=== PATIENT | female | born 1940 | race Caucasian/White ===

== ENCOUNTER 2018-01-15 15:02 | Emergency (ER) | payer MEDICARE, OTHER ==
--- NOTE | 2018-01-15 18:22 | EDM.PDOC ---
ED HPI GENERAL MEDICAL PROBLEM - General Chief Complaint: General Stated Complaint: ILLNESS Time Seen by Provider: 01/15/18 18:26 Source of Information: Reports: Patient, Family History Limitations: Reports: No Limitations - History of Present Illness INITIAL COMMENTS - FREE TEXT/NARRATIVE: pt arrived with burning discomfort in her mouth. She has had the feeling that she had a yeast infection. She is having some swallowing difficulty and does think about yeast in her esopogus. . She is worried about a left toe nail that is loose and has a probable yeast infection. Onset: Gradual, Other ( This has been going on for many days. ) Duration: Day(s): Location: Reports: Neck, Lower Extremity, Left - Related Data Allergies Allergy/AdvReac Type Severity Reaction Status Date / Time codeine Allergy Swelling Verified 01/15/18 16:24 gluten Allergy Swelling Verified 01/15/18 16:24 naproxen [From Aleve] Allergy Hallucinati Verified 01/15/18 16:24 ons prednisone Allergy Swelling Verified 01/15/18 16:24 steroids Allergy Swelling Uncoded 01/15/18 16:24 Home Meds: Home Meds Albuterol [Proventil HFA] 2 puff INH Q4H PRN 01/15/18 [History] Cholecalciferol (Vitamin D3) [Vitamin D3] 1 cap PO DAILY 01/15/18 [History] Fish Oil/[place]-3 Fatty Acids [Fish Oil 1,000 MG] 1 cap PO TID 01/15/18 [History] Ibuprofen [Advil] 1 cap PO ASDIRECTED PRN 01/15/18 [History] Latanoprost [Xalatan 0.005% Ophth Soln] 1 drop EYEBOTH BEDTIME 01/15/18 [History ] Loratadine 1 cap PO DAILY 01/15/18 [History] Mineral Oil/Petrolatum,White [Artificial Tears Eye Ointment] 3.5 gm OP BEDTIME 01/15/18 [History] NIFEdipine [Procardia Xl] 1 tab PO TID 01/15/18 [History] Sod Chlor&Bicarb/Squeez Bottle [[place] Saline Nasal Rinse Kit] 1 dose HYACINTH TID 01/15 [History] Theophylline [Theophylline] 0.5 tab PO BID 01/15/18 [History] guaiFENesin [Guaifenesin] 400 mg PO BID 01/15/18 [History] Past Medical History HEENT History: Reports: Glaucoma, Impaired Vision Respiratory History: Reports: Asthma, Bronchitis, Recurrent Gastrointestinal History: Reports: Celiac Disease MANAGER SURGERY History: Reports: Endometriosis Neurological History: Reports: MS - Past Surgical History HEENT Surgical History: Reports: Naso-Sinus Surgery, Polypectomy, Other (See Below) Other HEENT Surgeries/Procedures: "straighten septum" GI Surgical History: Reports: Appendectomy Female Surgical History: Reports: Hysterectomy Musculoskeletal Surgical History: Reports: Other (See Below) Other Musculoskeletal Surgeries/Procedures:: knee surgery Social & Family History - Tobacco Use Smoking Status *Q: Current Status Unknown - Recreational Drug Use Recreational Drug Use: No ED ROS GENERAL - Review of Systems Review Of Systems: See Below Constitutional: Reports: No Symptoms HEENT: Reports: No Symptoms Respiratory: Reports: No Symptoms Cardiovascular: Reports: No Symptoms Endocrine: Reports: No Symptoms GI/Abdominal: Reports: No Symptoms, Other ( some difficulty swallowing. ) : Reports: No Symptoms Musculoskeletal: Reports: No Symptoms Skin: Reports: No Symptoms ED EXAM, GENERAL - Physical Exam Exam: See Below Free Text/Narrative:: pt arrived with burning in her throat and mouth. She thought she had thrush. She has stopped some of her breathing meds because of this. She has slight swallowing difficulty. She has a great toe nail that is loose and has a fungal infection. Exam Limited By: No Limitations General Appearance: Alert, Anxious, Mild Distress Ears: Normal TMs Nose: Normal Inspection Throat/Mouth: Normal Inspection Head: Atraumatic Neck: Normal Inspection Respiratory/Chest: No Respiratory Distress Cardiovascular: Other ( while she was being monitored she had a run of vtaCH) GI/Abdominal: Soft, Non-Tender (Female) Exam: Deferred Rectal (Female) Exam: Deferred Back Exam: Normal Inspection Extremities: Other ( GREAT TOE NAIL ON THE LEFT IS LOOSE AND THERE APPEARS TO BE A FUNGAL INFECTION) Neurological: Alert, Oriented, Normal Cognition Psychiatric: Anxious Course - Vital Signs Last Recorded V/S: Last Vital Signs Temp 36.6 C 01/15/18 16:11 Pulse 80 01/15/18 16:11 Resp 16 01/15/18 16:11 BP 127/60 01/15/18 16:11 Pulse Ox 93 L 01/15/18 16:11 - Orders/Labs/Meds Orders: Active Orders 24 hr Category Date Time Status EKG Documentation Completion [RC] ASDIRECTED Care 01/15/18 17:04 Active UA W/MICROSCOPIC [URIN] Urgent Lab 01/15/18 18:13 Ordered EKG 12 Lead [EK] Routine Ther 01/15/18 17:04 Ordered Labs: Laboratory Tests 01/15/18 01/15/18 Range/Units 17:11 17:11 WBC 7.0 (4.5-11.0) K/uL RBC 5.15 (3.30-5.50) M/uL Hgb 15.8 H (12.0-15.0) g/dL Hct 46.1 (36.0-48.0) % MCV 90 (80-98) fL MCH 31 (27-31) pg MCHC 34 (32-36) % Plt Count 271 (150-400) K/uL Neut % (Auto) 60 (36-66) % Lymph % (Auto) 23 L (24-44) % Love % (Auto) 14 H (2-6) % Eos % (Auto) 3 (2-4) % Baso % (Auto) 1 (0-1) % Sodium 141 (140-148) mmol/L Potassium 3.9 (3.6-5.2) mmol/L Chloride 104 (100-108) mmol/L Carbon Dioxide 28 (21-32) mmol/L Anion Gap 9.4 (5.0-14.0) mmol/L BUN 14 (7-18) mg/dL Creatinine 0.8 (0.6-1.0) mg/dL Est Cr Clr Drug Dosing 45.68 mL/min Estimated GFR (MDRD) > 60 (>60) Glucose 82 (74-106) mg/dL Calcium 9.7 (8.5-10.1) mg/dL Total Bilirubin 0.3 (0.2-1.0) mg/dL AST 22 (15-37) U/L ALT 28 (12-78) U/L Alkaline Phosphatase 85 (46-116) U/L Total Protein 6.8 (6.4-8.2) g/dL Albumin 3.7 (3.4-5.0) g/dL Globulin 3.1 (2.3-3.5) g/dL Albumin/Globulin Ratio 1.2 (1.2-2.2) - Re-Assessments/Exams Free Text/Narrative Re-Assessment/Exam: 01/15/18 18:35 PT HAD NORMAL LABS, sHE DID HAVE A RUN OF VTACH WHILE BEING MONITORED. Departure - Departure Time of Disposition: 18:18 Disposition: Home, Self-Care 01 Condition: Fair Clinical Impression: Irritation of oral cavity, Cardiac arrhythmia - Discharge Information Instructions: Palpitations, [id number] Referrals: Trevor Spencer MD [Primary Care Provider] - Forms: ED Department Discharge Care Plan Goals: treat left toe nail with lotrimin solution apply to the open area tid, holter monitor 48 hour-- run of ventricular tach documented. If persistent swallowing difficulty pt wouLd need to be scoped to see if there is a yeast infection - My Orders Last 24 Hours: My Active Orders 01/15/18 17:04 EKG Documentation Completion [RC] ASDIRECTED EKG 12 Lead [EK] Routine 01/15/18 18:13 UA W/MICROSCOPIC [URIN] Urgent - Assessment/Plan Last 24 Hours: My Active Orders 01/15/18 17:04 EKG Documentation Completion [RC] ASDIRECTED EKG 12 Lead [EK] Routine 01/15/18 18:13 UA W/MICROSCOPIC [URIN] Urgent
== END 2018-01-15 18:39 | disposition home or self-care (01) ==
LOC: JP.ED 15:02
DX: K13.29 Other disturbances of oral epithelium, including tongue (principal); I49.9 Cardiac arrhythmia, unspecified; J45.909 Unspecified asthma, uncomplicated; Z88.5 Allergy status to narcotic agent; Z91.018 Allergy to other foods; Z88.8 Allergy status to other drugs, medicaments and biological substances; Z79.899 Other long term (current) drug therapy
CPT/HCPCS: 36415; 80053; 85025; 93005; 99284-25

== ENCOUNTER 2019-05-11 02:17 | Inpatient (IN) | payer MEDICARE, OTHER ==
[2019-05-11] MEDS ORDERED: methylPREDNISolone Sodium Succinate 125 MG/2 ML SDV IVPUSH ONE (02:22)
[2019-05-11] MEDS ORDERED: Sodium Chloride 0.9% 10 ML Syringe FLUSH PRN (02:22)
--- NOTE | 2019-05-11 02:32 | EDM.PDOC ---
ED HPI GENERAL MEDICAL PROBLEM - General Chief Complaint: Respiratory Problem Stated Complaint: [facility] Time Seen by Provider: 05/11/19 02:20 Source of Information: Reports: EMS, Old Records History Limitations: Reports: No Limitations - History of Present Illness INITIAL COMMENTS - FREE TEXT/NARRATIVE: 78 yo female with known COPD presents via EMS with increasing SOB over the past 3 days or so. No fever. She is not on home oxygen. EMS responded and found her oxygen sats at about 90% on their arrival. She was noted to be quite wheezy so EMS initiated CPAP and a Duoneb tx. Has MS also. Lives with her . Stopped her Brio inhaler recently for presumed side effects, has gotten worse since. Onset: Gradual Onset Date: 05/08/19 Duration: Day(s): (3), Getting Worse Location: Reports: Chest Quality: Reports: Other (tightness) Severity: Mild Improves with: Reports: Rest Worsens with: Reports: Movement Context: Reports: Other (hx of chronic lung dz/tobacco abuse) Associated Symptoms: Reports: Shortness of Breath. 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 Treatments, Oxygen Generalized Pain Score (Numeric/FACES): 9 - Related Data Allergies Allergy/AdvReac Type Severity Reaction Status Date / Time acetaminophen [From Tylenol] Allergy Severe Rash Verified 05/11/19 02:40 gluten Allergy Severe Swelling Verified 05/11/19 02:40 latex Allergy Severe Swelling Verified 05/11/19 02:40 Penicillins Allergy Severe Swelling Verified 05/11/19 02:40 codeine Allergy Swelling Verified 05/11/19 02:40 naproxen [From Aleve] Allergy Hallucinati Verified 05/11/19 02:40 ons prednisone Allergy Swelling Verified 05/11/19 02:40 steroids Allergy Swelling Uncoded 05/11/19 02:40 Home Meds: Home Meds Albuterol [Proventil HFA] 2 puff INH Q4H PRN 01/15/18 [History] Latanoprost [Xalatan 0.005% Ophth Soln] 1 drop EYEBOTH BEDTIME 01/15/18 [History ] Mineral Oil/Petrolatum,White [Artificial Tears Eye Ointment] 3.5 gm OP BEDTIME 01/15/18 [History] NIFEdipine [Procardia Xl] 1 tab PO DAILY 01/15/18 [History] Sod Chlor&Bicarb/Squeez Bottle [[place] Saline Nasal Rinse Kit] 1 dose HYACINTH TID PRN 01/15/18 [History] Metoprolol Succinate [Toprol Xl] 25 mg PO DAILY 07/25/18 [History] Lactobacillus Acidophilus [Acidophilus Lactobacillus] 1 each PO BID #60 capsule 07/26/18 [Rx] Famotidine [Pepcid AC] 10 mg PO DAILY 10/29/18 [History] Montelukast [Singulair] 10 mg PO DAILY 10/29/18 [History] Fluticasone/Vilanterol [Breo Ellipta 100-25 MCG Inhalation Kit] 1 each IH DAILY 05/11/19 [History] Past Medical History HEENT History: Reports: Glaucoma, Impaired Vision Cardiovascular History: Reports: Arrhythmia, Other (See Below) Other Cardiovascular History: mitral valve prolapse Respiratory History: Reports: Asthma, Bronchitis, Recurrent Gastrointestinal History: Reports: Celiac Disease, GERD RECRUITMENT AND OUTREACH ASSISTANT History: Reports: Endometriosis Neurological History: Reports: MS Dermatologic History: Reports: Urticaria - Past Surgical History HEENT Surgical History: Reports: Naso-Sinus Surgery, Polypectomy, Other (See Below) Other HEENT Surgeries/Procedures: "straighten septum" GI Surgical History: Reports: Appendectomy Female Surgical History: Reports: Hysterectomy Musculoskeletal Surgical History: Reports: Other (See Below) Other Musculoskeletal Surgeries/Procedures:: knee surgery Social & Family History - Caffeine Use Caffeine Use: Reports: Coffee - Living Situation & Occupation Living situation: Reports: Occupation: Retired (lives with ) ED ROS GENERAL - Review of Systems Review Of Systems: See Below Constitutional: Reports: No Symptoms HEENT: Reports: No Symptoms Respiratory: Reports: Shortness of Breath, Wheezing Cardiovascular: Reports: No Symptoms Endocrine: Reports: No Symptoms GI/Abdominal: Reports: No Symptoms : Reports: No Symptoms Musculoskeletal: Reports: No Symptoms Skin: Reports: No Symptoms Neurological: Reports: No Symptoms Psychiatric: Reports: No Symptoms ED EXAM, GENERAL - Physical Exam Exam: See Below Exam Limited By: No Limitations General Appearance: Alert, WD/WN, No Apparent Distress Eye Exam: Right Eye: Normal Fundi, Bilateral Eye: Normal Inspection Ears: Normal External Exam, Normal Canal, Hearing Grossly Normal Ear Exam: Bilateral Ear: Auricle Normal, Canal Normal Nose: Normal Inspection, No Blood Throat/Mouth: Normal Inspection, Normal Lips, Normal Oropharynx, Normal Voice, No Airway Compromise Head: Atraumatic, Normocephalic Neck: Normal Inspection Respiratory/Chest: Wheezing, Accessory Muscle Use. No: Lungs Clear, Normal Breath Sounds, Rhonchi Cardiovascular: Regular Rate, Rhythm, No Edema GI/Abdominal: Soft Extremities: Normal Inspection, Normal Range of Motion, Non-Tender, No Pedal Edema Neurological: Alert, Oriented, CN II-XII Intact, Normal Cognition, No Motor/ Sensory Deficits Psychiatric: Normal Affect, Normal Mood Skin Exam: Warm, Dry, Intact, Normal Color, No Rash Course - Vital Signs Text/Narrative:: Dr. Cherrie arevalo @ [id number] Last Recorded V/S: Last Vital Signs Temp 36.4 C 05/11/19 02:37 Pulse 103 H 05/11/19 02:37 Resp 20 05/11/19 02:37 BP 142/79 H 05/11/19 02:37 Pulse Ox 96 05/11/19 02:37 - Orders/Labs/Meds Orders: Active Orders 24 hr Category Date Time Status Chest 1V Frontal [CR] Stat Exams 05/11/19 02:22 Ordered BASIC METABOLIC PANEL,BMP [CHEM] Stat Lab 05/11/19 02:22 Ordered CRP [C-REACTIVE PROTEIN] [CHEM] Stat Lab 05/11/19 02:23 Ordered TROPONIN I [CHEM] Stat Lab 05/11/19 02:22 Ordered Sodium Chloride 0.9% [Saline Flush] Med 05/11/19 02:22 Active 10 ml FLUSH ASDIRECTED PRN Saline Lock Insert [OM.PC] Routine Oth 05/11/19 02:22 Ordered Medication Orders Sodium Chloride (Saline Flush) 10 ml FLUSH ASDIRECTED PRN PRN Reason: Keep Vein Open Labs: Laboratory Tests 05/11/19 05/11/19 Range/Units 02:35 02:35 WBC 9.4 (4.5-11.0) K/uL RBC 5.18 (3.30-5.50) M/uL Hgb 16.1 H (12.0-15.0) g/dL Hct 46.6 (36.0-48.0) % MCV 90 (80-98) fL MCH 31 (27-31) pg MCHC 35 (32-36) % Plt Count 236 (150-400) K/uL Puncture Site L brachial ABG pH 7.357 (7.350-7.450) ABG pCO2 55.2 H (35.0-42.0) mmHg ABG pO2 200.0 H (75.0-100.0) mmHg ABG HCO3 30.2 H (22.0-26.0) mmol/L ABG Total CO2 25.9 H (21.0-25.0) mmol/L ABG O2 Saturation 99.2 H (95.0-98.0) % ABG O2 Content 22.7 (15.0-23.0) %vol ABG Base Excess 3.5 mm/L ABG Hemoglobin 16.5 H (12.0-16.0) g/dL ABG Oxyhemoglobin 96.6 % ABG Carboxyhemoglobin 2.1 H (0.0-1.6) % ABG Methemoglobin 0.5 % O2 Delivery Device Cpap Oxygen Flow Rate 6 L Meds: Medications Generic Name Dose Route Start Last Admin Trade Name Freq PRN Reason Stop Dose Admin Sodium Chloride 10 ml 05/11/19 02:22 Saline Flush FLUSH ASDIRECTED PRN Keep Vein Open Discontinued Medications Generic Name Dose Route Start Last Admin Trade Name Freq PRN Reason Stop Dose Admin Methylprednisolone Sodium Succinate 125 mg 05/11/19 02:22 Solu-Medrol IVPUSH 05/11/19 02:23 ONETIME ONE - Radiology Interpretation Free Text/Narrative:: CXR-hyperaeration only. Departure - Departure Time of Disposition: 03:15 Disposition: Refer to Observation Condition: Fair Clinical Impression: COPD exacerbation - Discharge Information *PRESCRIPTION DRUG MONITORING PROGRAM REVIEWED*: No *COPY OF PRESCRIPTION DRUG MONITORING REPORT IN PATIENT MARTHA: No Referrals: Trevor Spencer MD [Primary Care Provider] - Forms: ED Department Discharge - My Orders Last 24 Hours: My Active Orders 05/11/19 02:22 Chest 1V Frontal [CR] Stat BASIC METABOLIC PANEL,BMP [CHEM] Stat TROPONIN I [CHEM] Stat Sodium Chloride 0.9% [Saline Flush] 10 ml FLUSH ASDIRECTED PRN Saline Lock Insert [OM.PC] Routine 05/11/19 02:23 CRP [C-REACTIVE PROTEIN] [CHEM] Stat - Assessment/Plan Last 24 Hours: My Active Orders 05/11/19 02:22 Chest 1V Frontal [CR] Stat BASIC METABOLIC PANEL,BMP [CHEM] Stat TROPONIN I [CHEM] Stat Sodium Chloride 0.9% [Saline Flush] 10 ml FLUSH ASDIRECTED PRN Saline Lock Insert [OM.PC] Routine 05/11/19 02:23 CRP [C-REACTIVE PROTEIN] [CHEM] Stat
--- NOTE | 2019-05-11 03:19 | CRLCR ---
Indication: Shortness of breath Technique: Chest 1 view Comparison: N October 29, 2018 one Findings/Impression: Cardiovascular and mediastinum: Heart size and vasculature are normal in caliber and appearance. Mediastinum is within normal limits. Lungs and pleural space: Lungs are clear. No sign of infiltrate or mass. No sign of pleural effusion. No pneumothorax. Bones and soft tissues: No significant findings. Dictated by Brie Norris MD @ May 11 2019 3:16AM Signed by Dr. Brie Norris @ May 11 2019 3:18AM
[2019-05-11] MEDS ORDERED: SODIUM CHLORIDE NAS PRN (04:28)
[2019-05-11] MEDS ORDERED: SODIUM BICARBONATE NAS PRN (04:28)
[2019-05-11] MEDS ORDERED: [UNRECOGNIZED DRUG - OTHER] NAS PRN (04:28)
[2019-05-11] MEDS: methylPREDNISolone Sodium Succinate 125 MG/2 ML SDV IVPUSH SCH ×3 (05:35→16:17)
[2019-05-11] MEDS: Albuterol/Ipratropium 3.0-0.5 MG/3 ML Neb Soln NEB SCH ×4 (05:35→22:50)
--- NOTE | 2019-05-11 06:16 | HP ---
IDENTIFYING DATA: Alicia Spain is a 78-year-old female from [place]. CHIEF COMPLAINT: Worsening chronic respiratory disease. HISTORY OF PRESENT ILLNESS: Adult female who has a history of known chronic obstructive pulmonary disease with previous tobacco use, now abstaining, presented to the emergency room with increased shortness of breath and air hunger. She reports she uses albuterol products in metered-dose inhaler or nebulizer form on a p.r.n. basis. She has been trialed on multitude of alternative maintenance medications including recently used Breo Ellipta, Advair Diskus and montelukast, all of which cause medication-related side effects and therefore discontinued. She does not have home oxygen. She requires no nocturnal supportive therapy in the form of CPAP. She refuses pneumococcal and influenza vaccines noting previous reaction with injections. She has had no fevers, chills, or purulent sputum production. She has had chest tightness of 3 days' duration, increasing dyspnea with minimal exertion and clear mucoid sputum production with Breo Ellipta having been discontinued approximately 1-1/2 week ago. PAST MEDICAL HISTORY: History of chronic obstructive pulmonary disease. She reports gluten sensitivity with restricted dietary intake, a greater than 40-year history of multiple sclerosis, Raynaud's phenomena, hyperlipidemia, and mitral valve prolapse. HABITS: Nonsmoker of 3 years' duration by patient's report. Abstains from use of caffeinated beverages and alcohol. CURRENT MEDICATIONS: Tizanidine 4 mg t.i.d. p.r.n., albuterol metered-dose inhaler or nebulizer solution q.4 hours p.r.n., acetaminophen 325 mg q.6 hours p.r.n. pain, Lactobacillus 1 tablet b.i.d., metoprolol succinate 25 mg daily for underlying mitral valve prolapse, Xalatan 0.005% one drop to both eyes at bedtime, famotidine 10 mg daily, nasal saline rinse used as necessary, EpiPen p.r.n. anaphylaxis. Note recent discontinuation of Breo Ellipta, nifedipine and montelukast. SOCIAL HISTORY: Retired. Restricted by chronic respiratory disease and accompanying weakness and pain from multiple sclerosis. She resides with in their independent dwelling. She performs limited amounts of light household work. She is able to ambulate independently though uses a walker to provide stabilization. Does assist with some shopping. She no longer drives. service station attendant provides assistance with bathing. No other nursing care in-home is required. FAMILY HISTORY: Sister with a history of obstructive pulmonary disease and anxiety disorder. No familial history of acute respiratory infections. REVIEW OF SYSTEMS: NEUROLOGIC: Reports multiple sclerosis with diffuse generalized hypersensitivity, pain and weakness. Does have accompanying glaucomatous eye disease. No history of stroke or stroke-like function. CARDIAC: Mitral valve prolapse. No history of ischemic heart disease, chest pain, palpitations, syncope, diabetes, hypertension, or congestive heart failure. Intermittent mild dependent edema is managed with elevation of the extremities RESPIRATORY: Chronic obstructive pulmonary disease with previous tobacco use, now abstaining, otherwise as above. GI: Reports gluten sensitivity and abdominal upset with gluten exposure. No history of hepatitis, jaundice, or gallbladder disease. Bowel movements are regular without melena or hematochezia. : Rises once nightly to void. Occasional scant incontinence with cough or strain. No history of chronic renal disease. MUSCULOSKELETAL: Some discomfort in the lower extremities attributed to multiple sclerosis. Has had previous arthroscopic knee surgery. PHYSICAL EXAMINATION: GENERAL: Appearance of that of a thin, mildly anxious elderly female. VITAL SIGNS: Initial vitals, temperature 36.4 degrees centigrade, blood pressure 142/79, respiratory rate 20, pulse 103 with borderline sinus tachycardia, O2 sats are 96% with supplemental oxygen at 4 L/minute. HEENT: Hearing is intact. Canals and TMs are normal. Sclerae anicteric. Extraocular eye movements are symmetrical. No oropharyngeal lesions. Mucosa is moist. NECK: Brisk carotid pulses. No bruits, adenopathy, or thyromegaly. LUNGS: Resonant to percussion. No retractions noted. Diminished breath sounds throughout. No wheezes, rales, or rhonchi heard. HEART: Regular. Borderline tachycardic. No murmurs or gallops noted. ABDOMEN: Thin, soft, and nontender. No organomegaly. Active sounds. No CVA pain. AND RECTAL EXAM: Omitted. EXTREMITIES: Warm, pink and dry with brisk capillary refill. Palpable pulses. No pitting edema. No phlebitic changes or varicosities. No open skin lesions. Noncyanotic. IMAGING STUDIES: AP chest x-ray on admission shows emphysematous changes with hyperexpanded lung pryor, flattening of the diaphragm. Cardiac silhouette is unremarkable. No acute infiltrates. LABORATORY DATA: Labs on admission, sodium 142, potassium 4.4, BUN 14, creatinine 0.7, glucose 113 with calcium of 10. Troponin less than 0.017. CRP 0.17. WBC within normal range at 7.4, hemoglobin 16.1, platelet count 236,000. IMPRESSIONS: 1. Chronic obstructive pulmonary disease in a formerly smoking female with presentation of acute exacerbation. 2. Reported history of multiple sclerosis. 3. History of gluten sensitivity with dietary restrictions. 4. Mitral valve prolapse. 5. Glaucoma. 6. Reports multiple drug allergies or intolerances. Listed allergies include fish oil, fluticasone, gluten, amitriptyline, codeine, flu vaccines, latex, naproxen, penicillin and questionably prednisone though steroid therapies have previously been used. PLAN: The patient will be admitted to observation status. We will provide supplemental oxygen as needed, DuoNebs q.i.d. and every 3 hours p.r.n. dyspnea as well as IV Solu-Medrol with injectable corticosteroids previously used with good results. The patient does note she typically receives IM triamcinolone for chronic environmental allergies. We will maintain full code status. Allow dietary intake with patient making gluten-free selections as desired. Allow light activity as tolerated. Call for assistance if weak or unsteady. We will maintain on inhaled bronchodilator therapies. Discussed the option of initiating maintenance inhaled therapy such as Spiriva or combination beta-agonist and steroid product, though the patient is hesitant to commit to therapies. We will therefore continue with limited therapies including IV steroid burst and inhaled bronchodilators. Consider also resumption of montelukast. The patient noting she abstains from use of antihistamines for reasons of glaucomatous eye disease Anticipate hospital stay of less than 72 hours with subsequent follow up with primary caregiver in the outpatient clinic. Og Grier MD /[id number]
[2019-05-11] MEDS ORDERED: NIFEDIPINE PO SCH (09:00)
[2019-05-11] MEDS ORDERED: Non-Formulary Medication 1 Each (Montelukast [Singulair] 10 MG) PO SCH (09:00)
[2019-05-11] MEDS ORDERED: Lactobacillus Rhamnosus GG (Probiotic) Cap PO SCH (09:00)
[2019-05-11] MEDS ORDERED: Famotidine 20 MG Tab PO SCH ×3 (09:00→16:30)
[2019-05-11] MEDS: Metoprolol Succinate 25 MG Tab.ER**POM PO SCH (09:03)
[2019-05-11] MEDS ORDERED: tiZANidine 2 MG Tab PO PRN (13:33)
[2019-05-11] MEDS: TIZANIDINE 4 MG PO PRN (13:51)
[2019-05-11] MEDS: FAMOTIDINE 20 MG PO SCH (16:16)
[2019-05-11] MEDS: LACTOBACILLUS RHAMNOSUS GG PO SCH ×2 (18:03→20:14)
[2019-05-11] MEDS ORDERED: Lanolin/Mineral Oil/Petrolatum Ophth Oint 3.5 GM Tube EYEBOTH SCH (21:00)
[2019-05-11] MEDS ORDERED: Latanoprost 0.005% Ophth Soln 2.5 ML Bottle EYEBOTH SCH (21:00)
[2019-05-11] MEDS: LATANOPROST 0.005% EYEBOTH SCH (21:00)
[2019-05-11] MEDS: Lanolin/Mineral Oil/Petrolatum Ophth Oint 3.5 GM Tube EYEBOTH SCH (21:23)
[2019-05-11] MEDS: Acetaminophen 325 MG Tab PO PRN (21:24)
[2019-05-12] MEDS: TIZANIDINE 4 MG PO PRN (00:20)
[2019-05-12] MEDS: methylPREDNISolone Sodium Succinate 125 MG/2 ML SDV IVPUSH SCH ×2 (00:26→09:31)
[2019-05-12] MEDS: Acetaminophen 325 MG Tab PO PRN ×2 (03:21→10:08)
[2019-05-12] MEDS: Albuterol/Ipratropium 3.0-0.5 MG/3 ML Neb Soln NEB SCH ×4 (04:26→22:34)
[2019-05-12] MEDS: LACTOBACILLUS RHAMNOSUS GG PO SCH ×4 (05:57→18:36)
[2019-05-12] MEDS: Metoprolol Succinate 25 MG Tab.ER**POM PO SCH ×2 (07:58→08:51)
--- NOTE | 2019-05-12 09:28 | PCM.PN ---
- General Info Date of Service: 05/12/19 Subjective Update: There were no acute events throughout the day yesterday or overnight. Oxygenation has been steadily improving and she's now down to 1 L of supplemental oxygen. She feels less short of breath today. She has not had any fevers. She is a little weak but thinks her strength is better today. Appetite is acceptable. No wheezing today. Functional Status: Reports: Pain Controlled, Tolerating Diet - Review of Systems General: Reports: Weakness Pulmonary: Reports: Shortness of Breath - Patient Data Vitals - Most Recent: Last Vital Signs Temp 35.5 C 05/12/19 08:00 Pulse 78 05/12/19 08:00 Resp 20 05/12/19 08:00 BP 117/44 L 05/12/19 08:00 Pulse Ox 95 05/12/19 08:00 Weight - Most Recent: 46.221 kg I&O - Last 24 Hours: Intake & Output 05/11/19 05/12/19 05/12/19 22:59 06:59 14:59 Intake Total 240 Output Total 200 400 160 Balance -200 -400 80 Med Orders - Current: Current Medications Acetaminophen (Tylenol) 650 mg PO Q4H PRN PRN Reason: Pain Last Admin: 05/12/19 03:21 Dose: 325 mg Albuterol/Ipratropium (Duoneb 3.0-0.5 Mg/3 Ml) 3 ml NEB Q6H [facility] Last Admin: 05/12/19 04:26 Dose: 3 ml Artificial Tears (Artificial Tears Ointment) 0 gm EYEBOTH BEDTIME [facility] Last Admin: 05/11/19 21:23 Dose: Not Given Famotidine (Pepcid) 20 mg PO DAILY@1630 [facility] Last Admin: 05/11/19 16:16 Dose: 20 mg Lactobacillus Rhamnosus (Culturelle) 1 cap PO Q12H [facility] Last Admin: 05/12/19 07:39 Dose: Not Given Latanoprost (Xalatan 0.005% [facility]) 0 ml EYEBOTH BEDTIME [facility] Last Admin: 05/11/19 21:00 Dose: 1 drop Methylprednisolone (Medrol) 4 mg PO BIDAC [facility] Methylprednisolone Sodium Succinate (Solu-Medrol) 62.5 mg IVPUSH Q8H [facility] Stop: 05/13/19 08:00 Last Admin: 05/12/19 00:26 Dose: 62.5 mg Metoprolol Succinate (Toprol Xl) 25 mg PO DAILY [facility] Last Admin: 05/12/19 08:51 Dose: Not Given Sod Chlor&Bicarb/Squeez Bottle ([place] Saline)Pom 0 dose HYACINTH TID PRN PRN Reason: Allergies Sodium Chloride (Saline Flush) 10 ml FLUSH ASDIRECTED PRN PRN Reason: Keep Vein Open Last Admin: 05/11/19 04:05 Dose: 10 ml Tizanidine HCl (Zanaflex) 2 mg PO TID PRN PRN Reason: Muscle Spasm Last Admin: 05/12/19 00:20 Dose: 2 mg Discontinued Medications Artificial Tears (Artificial Tears Ointment) 0 gm EYEBOTH BEDTIME [facility] Famotidine (Pepcid) 10 mg PO DAILY [facility] Last Admin: 05/11/19 10:20 Dose: Not Given Famotidine (Pepcid) 10 mg PO DAILY [facility] Famotidine (Pepcid) 10 mg PO DAILY@1630 [facility] Lactobacillus Rhamnosus (Culturelle) 1 cap PO BID [facility] Last Admin: 05/11/19 09:02 Dose: Not Given Lactobacillus Rhamnosus (Culturelle) 1 cap PO BID [facility] Last Admin: 05/12/19 05:57 Dose: 1 cap Latanoprost (Xalatan 0.005% Ophth Soln) 0 ml EYEBOTH BEDTIME [facility] Methylprednisolone Sodium Succinate (Solu-Medrol) 125 mg IVPUSH ONETIME ONE Stop: 05/11/19 02:23 Last Admin: 05/11/19 05:07 Dose: Not Given Methylprednisolone Sodium Succinate (Solu-Medrol) 125 mg IVPUSH Q6H [facility] Stop: 05/13/19 08:00 Last Admin: 05/11/19 10:40 Dose: 125 mg Non-Formulary Medication (Montelukast [Singulair]) 10 mg PO DAILY [facility] Non-Formulary Medication (Nifedipine [Procardia Xl]) 1 tab PO DAILY [facility] Tizanidine HCl (Zanaflex) 2 mg PO TID PRN PRN Reason: Muscle Spasm - Exam Quality Assessment: Supplemental Oxygen General: Alert, Oriented, Cooperative, No Acute Distress Neck: Supple Lungs: Clear to Auscultation, Normal Respiratory Effort. No: Wheezing Cardiovascular: Regular Rate, Regular Rhythm GI/Abdominal Exam: Soft, No Distention Extremities: No Pedal Edema Psy/Mental Status: Alert, Normal Affect - Problem List Review Problem List Initiated/Reviewed/Updated: Yes - My Orders Last 24 Hours: My Active Orders 05/11/19 13:41 tiZANidine [Zanaflex] 2 mg PO TID PRN 05/11/19 16:13 Patient Status [ADT] Routine 05/11/19 17:00 methylPREDNISolone Sod Succ [Solu-MEDROL] 62.5 mg IVPUSH Q8H 05/12/19 09:27 Antiembolic Devices [RC] .Routine Peripheral IV Discontinue [OM.PC] Routine SCD [Sequential Compression Device] [OM.PC] Routine 05/12/19 09:30 methylPREDNISolone [Medrol] 4 mg PO BIDAC - Plan Plan:: ASSESSMENT AND PLAN - COPD with acute exacerbation - likely environmental trigger with normal white count, no fevers and normal CRP. Improving with steroid therapy. -Transition to oral methylprednisolone 4 mg twice daily with plan to treat through Monday -Nebulizers -Supplement oxygen as needed Acute respiratory failure with hypoxia and hypercapnia - steadily improving with therapy as discussed above. Still requiring supplemental oxygen. Multiple sclerosis - symptoms are stable compared to baseline with no exacerbation at this time. -Continue home medications Celiac disease - patient is strictly gluten-free. Maintenance issues - - DVT prophylaxis - mechanical - GI prophylaxis - H2 joe - Nutrition - gluten-free - Currie catheter - not indicated Admission justification - Initially admitted to observation status for transition to inpatient status with acute respiratory failure with both hypoxia and hypercapnia. Disposition - I would anticipate discharge to home after the hospital stay Primary care physician - Dr. Johanna Cheung M.D.
[2019-05-12] MEDS: FAMOTIDINE 20 MG PO SCH (15:41)
[2019-05-12] MEDS: Lanolin/Mineral Oil/Petrolatum Ophth Oint 3.5 GM Tube EYEBOTH SCH (20:51)
[2019-05-12] MEDS: LATANOPROST 0.005% EYEBOTH SCH (22:52)
[2019-05-13] MEDS: Acetaminophen 325 MG Tab PO PRN (00:27)
[2019-05-13] MEDS: TIZANIDINE 4 MG PO PRN ×2 (03:32→03:34)
[2019-05-13] MEDS: Albuterol/Ipratropium 3.0-0.5 MG/3 ML Neb Soln NEB SCH ×2 (03:54→10:14)
[2019-05-13] MEDS: LACTOBACILLUS RHAMNOSUS GG PO SCH (06:21)
[2019-05-13] MEDS: Metoprolol Succinate 25 MG Tab.ER**POM PO SCH (08:02)
--- NOTE | 2019-05-13 10:36 | PCM.DCSUM1 ---
Discharge Summary - Hospital Course Brief History: Ms. Spain is a 78-year-old woman who was admitted through the emergency department with increased shortness of breath, hypoxia, and hypercapnia, secondary to COPD exacerbation. - Discharge Data Discharge Date: 05/13/19 Discharge Disposition: Home, Self-Care 01 Condition: Stable - Discharge Diagnosis/Problem(s) (1) Acute on chronic respiratory failure with hypoxia and hypercapnia SNOMED Code(s): 10020101532811 ICD Code: J96.21 - ACUTE AND CHRONIC RESPIRATORY FAILURE WITH HYPOXIA; J96.22 - ACUTE AND CHRONIC RESPIRATORY FAILURE WITH HYPERCAPNIA Status: Acute Current Visit: Yes (2) COPD exacerbation SNOMED Code(s): 793380477 ICD Code: J44.1 - CHRONIC OBSTRUCTIVE PULMONARY DISEASE W (ACUTE) EXACERBATION Status: Acute Current Visit: Yes (3) Multiple sclerosis SNOMED Code(s): 58209226 ICD Code: G35 - MULTIPLE SCLEROSIS Status: Chronic Current Visit: No - Patient Summary/Data Hospital Course: Ms. Spain is a 78-year-old woman who was admitted through the emergency department with increased shortness of breath, hypoxia, and hypercapnia, secondary to COPD exacerbation. She has a past history of smoking and does have underlying COPD. For a few days prior to admission developed increased shortness of breath and presented to the emergency department for further evaluation. White blood cell count was normal and chest x-ray showed no obvious infiltrates. Exacerbation was felt to be environmental in nature with no evidence of underlying infection. Arterial blood gases were obtained showing evidence of hypoxia and hypercapnia. She has a known underlying history of multiple sclerosis complicating her respiratory status. She was treated with IV methylprednisolone and prior to discharge was converted to oral methylprednisolone. She required supplemental oxygen throughout hospital stay. Prior to discharge she was assessed for ongoing use of supplemental oxygen at home. Oxygen saturation on room air at rest was 86% prior to discharge. Home oxygen therapy will be arranged for her and she will remain on oral methylprednisolone for an additional 3 days. Activity will be as tolerated and she will resume her usual diet. Follow-up appointment will be scheduled with her primary care provider within one week. - Patient Instructions Diet: Usual Diet as Tolerated Activity: As Tolerated Other/Special Instructions: Please schedule follow-up appointment with primary care provider within one week. - Discharge Plan *PRESCRIPTION DRUG MONITORING PROGRAM REVIEWED*: No *COPY OF PRESCRIPTION DRUG MONITORING REPORT IN PATIENT MARTHA: No Prescriptions/Med Rec: methylPREDNISolone [Medrol] 4 mg PO BIDAC #5 tablet Home Medications: Home Meds Albuterol [Proventil HFA] 2 puff INH Q4H PRN 01/15/18 [History] Latanoprost [Xalatan 0.005% Ophth Soln] 1 drop EYEBOTH BEDTIME 01/15/18 [History ] Mineral Oil/Petrolatum,White [Artificial Tears Eye Ointment] 3.5 gm OP BEDTIME 01/15/18 [History] NIFEdipine [Procardia Xl] 1 tab PO DAILY 01/15/18 [History] Sod Chlor&Bicarb/Squeez Bottle [[place] Saline Nasal Rinse Kit] 1 dose HYACINTH TID PRN 01/15/18 [History] Metoprolol Succinate [Toprol Xl] 25 mg PO DAILY 07/25/18 [History] Lactobacillus Acidophilus [Acidophilus Lactobacillus] 1 each PO BID #60 capsule 07/26/18 [Rx] Famotidine [Pepcid AC] 10 mg PO DAILY 10/29/18 [History] Montelukast [Singulair] 10 mg PO DAILY 10/29/18 [History] Fluticasone/Vilanterol [Breo Ellipta 100-25 MCG Inhalation Kit] 1 each IH DAILY 05/11/19 [History] methylPREDNISolone [Medrol] 4 mg PO BIDAC #5 tablet 05/13/19 [Rx] Patient Handouts: Chronic Obstructive Pulmonary Disease, [id number] Referrals: Trevor Spencer MD [Primary Care Provider] - - Discharge Summary/Plan Comment DC Time >30 min.: No - Patient Data Vitals - Most Recent: Last Vital Signs Temp 96 F 05/13/19 08:04 Pulse 87 05/13/19 08:04 Resp 12 05/13/19 08:04 BP 145/61 H 05/13/19 08:04 Pulse Ox 86 L 05/13/19 09:57 Weight - Most Recent: 101 lb I&O - Last 24 hours: Intake & Output 05/12/19 05/13/19 05/13/19 22:59 06:59 14:59 Intake Total 240 Output Total 500 Balance -260 Med Orders - Current: Current Medications Acetaminophen (Tylenol) 650 mg PO Q4H PRN PRN Reason: Pain Last Admin: 05/13/19 00:27 Dose: 325 mg Albuterol/Ipratropium (Duoneb 3.0-0.5 Mg/3 Ml) 3 ml NEB Q6H [facility] Last Admin: 05/13/19 10:14 Dose: Not Given Artificial Tears (Artificial Tears Ointment) 0 gm EYEBOTH BEDTIME [facility] Last Admin: 05/12/19 20:51 Dose: Not Given Famotidine (Pepcid) 20 mg PO DAILY@1630 [facility] Last Admin: 05/12/19 15:41 Dose: 20 mg Lactobacillus Rhamnosus (Culturelle) 1 cap PO Q12H [facility] Last Admin: 05/13/19 06:21 Dose: 1 cap Latanoprost (Xalatan 0.005% Ophth Soln) 0 ml EYEBOTH BEDTIME [facility] Last Admin: 05/12/19 22:52 Dose: 1 drop Methylprednisolone (Medrol) 4 mg PO BIDAC [facility] Last Admin: 05/13/19 08:00 Dose: 4 mg Metoprolol Succinate (Toprol Xl) 25 mg PO DAILY [facility] Last Admin: 05/13/19 08:02 Dose: 25 mg Sod Chlor&Bicarb/Squeez Bottle ([place] Saline)Pom 0 dose HYACINTH TID PRN PRN Reason: Allergies Sodium Chloride (Saline Flush) 10 ml FLUSH ASDIRECTED PRN PRN Reason: Keep Vein Open Last Admin: 05/11/19 04:05 Dose: 10 ml Tizanidine HCl (Zanaflex) 2 mg PO TID PRN PRN Reason: Muscle Spasm Last Admin: 05/13/19 03:34 Dose: 2 mg Discontinued Medications Artificial Tears (Artificial Tears Ointment) 0 gm EYEBOTH BEDTIME [facility] Famotidine (Pepcid) 10 mg PO DAILY [facility] Last Admin: 05/11/19 10:20 Dose: Not Given Famotidine (Pepcid) 10 mg PO DAILY [facility] Famotidine (Pepcid) 10 mg PO DAILY@1630 [facility] Lactobacillus Rhamnosus (Culturelle) 1 cap PO BID [facility] Last Admin: 05/11/19 09:02 Dose: Not Given Lactobacillus Rhamnosus (Culturelle) 1 cap PO BID [facility] Last Admin: 05/12/19 05:57 Dose: 1 cap Latanoprost (Xalatan 0.005% Ophth Soln) 0 ml EYEBOTH BEDTIME [facility] Methylprednisolone Sodium Succinate (Solu-Medrol) 125 mg IVPUSH ONETIME ONE Stop: 05/11/19 02:23 Last Admin: 05/11/19 05:07 Dose: Not Given Methylprednisolone Sodium Succinate (Solu-Medrol) 125 mg IVPUSH Q6H [facility] Stop: 05/13/19 08:00 Last Admin: 05/11/19 10:40 Dose: 125 mg Methylprednisolone Sodium Succinate (Solu-Medrol) 62.5 mg IVPUSH Q8H [facility] Stop: 05/13/19 08:00 Last Admin: 05/12/19 09:31 Dose: Not Given Non-Formulary Medication (Montelukast [Singulair]) 10 mg PO DAILY [facility] Non-Formulary Medication (Nifedipine [Procardia Xl]) 1 tab PO DAILY [facility] Tizanidine HCl (Zanaflex) 2 mg PO TID PRN PRN Reason: Muscle Spasm - Exam Quality Assessment: Reports: Supplemental Oxygen, DVT Prophylaxis General: Reports: Alert, Oriented, Cooperative, No Acute Distress Lungs: Reports: Decreased Breath Sounds. Denies: Crackles, Rales, Rhonchi, Wheezing Cardiovascular: Reports: Regular Rate, Regular Rhythm, No Murmurs GI/Abdominal Exam: Soft, Non-Tender, No Organomegaly, No Distention
== END 2019-05-13 13:28 | disposition home or self-care (01) | DRG 190 ==
LOC: JP.ED 02:17 → JP.ICU 05:09 → INTOOBSV 05:09 → OBSVTOIN 16:13
PROVIDERS: ADMIT Family Medicine; ATTEND Hospitalist
DX: J44.1 Chronic obstructive pulmonary disease with (acute) exacerbation (principal); J96.21 Acute and chronic respiratory failure with hypoxia; J96.22 Acute and chronic respiratory failure with hypercapnia; G35 Multiple sclerosis; H54.7 Unspecified visual loss; H40.9 Unspecified glaucoma; K90.0 Celiac disease; K21.9 Gastro-esophageal reflux disease without esophagitis; Z90.710 Acquired absence of both cervix and uterus; Z87.891 Personal history of nicotine dependence; Z88.6 Allergy status to analgesic agent; Z91.040 Latex allergy status; Z88.0 Allergy status to penicillin; Z88.8 Allergy status to other drugs, medicaments and biological substances; R06.2 Wheezing; I49.9 Cardiac arrhythmia, unspecified; R06.02 Shortness of breath; Z91.018 Allergy to other foods; Z79.899 Other long term (current) drug therapy; I73.00 Raynaud's syndrome without gangrene; E78.5 Hyperlipidemia, unspecified; I34.1 Nonrheumatic mitral (valve) prolapse
CPT/HCPCS: 36415; 36600; 71045; 80048; 82803; 84484; 85027; 86140; 94640 ×2; 99285; A9270 ×2; J2930 ×2; J7620-GY

== ENCOUNTER 2019-10-22 05:41 | Inpatient (IN) | payer MEDICARE, OTHER ==
[2019-10-22] MEDS ORDERED: Sodium Chloride 0.9% 10 ML Syringe FLUSH PRN (05:47)
[2019-10-22] MEDS ORDERED: Carvedilol 25 MG Tab PO ONE (05:53)
[2019-10-22] MEDS ORDERED: Aspirin 81 MG Tab.Chew PO ONE (05:53)
--- NOTE | 2019-10-22 06:00 | EDM.PDOC ---
<Elie Kennedy G - Last Filed: 10/22/19 06:41> ED HPI GENERAL MEDICAL PROBLEM - General Chief Complaint: Cardiovascular Problem Stated Complaint: MED[facility] Time Seen by Provider: 10/22/19 05:45 Source of Information: Reports: Patient, EMS, Old Records History Limitations: Reports: No Limitations - History of Present Illness INITIAL COMMENTS - FREE TEXT/NARRATIVE: 79 yo female here via EMS with SOB that she awoke with at home tonight. Is on oxygen chronically at 1 liter/min/nc. Has chronic lung dz and MS. Is on low dose metoprolol succinate that she last took yesterday morning. Says Dr. Spencer was in the process of switching her to Coreg. Denies recent fever or chest pain. Breathing is worse if she lays flat. Has no hx of afib. Has an ECHO pending. EMS gave ASA en route. Onset: Today, Sudden Onset Date: 10/22/19 Onset Time: 05:05 Duration: Minutes:, Constant Location: Reports: Chest Quality: Reports: Other (denies pain) Severity: Moderate (SOB) Improves with: Reports: Other (oxygen and sitting upright) Worsens with: Reports: Other (lying flat, lack of oxygen) Context: Reports: Other (see HPI, has COPD and MS) Associated Symptoms: Reports: Shortness of Breath. Denies: Confusion, Cough, Diaphoresis, Fever/Chills, Nausea/Vomiting, Syncope Treatments CATEGORY SPECIALIST: Reports: Aspirin Generalized Pain Score (Numeric/FACES): 2 - Related Data Allergies Allergy/AdvReac Type Severity Reaction Status Date / Time acetaminophen [From Tylenol] Allergy Severe Rash Verified 05/11/19 06:12 gluten Allergy Severe Swelling Verified 05/11/19 06:12 latex Allergy Severe Swelling Verified 05/11/19 06:12 Penicillins Allergy Severe Swelling Verified 05/11/19 06:12 codeine Allergy Swelling Verified 05/11/19 06:12 naproxen [From Aleve] Allergy Hallucinati Verified 05/11/19 06:12 ons prednisone Allergy Swelling Verified 05/11/19 06:12 steroids Allergy Swelling Uncoded 05/11/19 06:12 Home Meds: Home Meds Albuterol [Proventil HFA] 2 puff INH Q4H PRN 01/15/18 [History] Latanoprost [Xalatan 0.005% Ophth Soln] 1 drop EYEBOTH BEDTIME 01/15/18 [History ] Mineral Oil/Petrolatum,White [Artificial Tears Eye Ointment] 3.5 gm OP BEDTIME 01/15/18 [History] Sod Chlor&Bicarb/Squeez Bottle [[place] Saline Nasal Rinse Kit] 1 dose HYACINTH TID PRN 01/15/18 [History] Metoprolol Succinate [Toprol Xl] 25 mg PO DAILY 07/25/18 [History] Lactobacillus Acidophilus [Acidophilus Lactobacillus] 1 each PO BID #60 capsule 07/26/18 [Rx] Famotidine [Pepcid AC] 10 mg PO DAILY 10/29/18 [History] Acetaminophen 325 mg PO DAILY 10/22/19 [History] Azithromycin [Zithromax] 250 mg PO DAILY 10/22/19 [History] Cefdinir [Omnicef 250 MG/5 ML Susp] 250 mg PO ASDIRECTED 10/22/19 [History] EPINEPHrine [Epinephrine] 0.3 mg IM ASDIRECTED 10/22/19 [History] tiZANidine [Zanaflex] 4 mg PO TID 10/22/19 [History] Past Medical History HEENT History: Reports: Glaucoma, Impaired Vision Cardiovascular History: Reports: Other (See Below) Other Cardiovascular History: mitral valve prolapse Respiratory History: Reports: Asthma, Bronchitis, Recurrent Gastrointestinal History: Reports: Celiac Disease, GERD INTERMEDIATE MANAGER History: Reports: Endometriosis Neurological History: Reports: MS Dermatologic History: Reports: Urticaria - Infectious Disease History Infectious Disease History: Reports: Chicken Pox, Measles, Mumps, Shingles - Past Surgical History HEENT Surgical History: Reports: Naso-Sinus Surgery, Polypectomy, Other (See Below) Other HEENT Surgeries/Procedures: "straighten septum" GI Surgical History: Reports: Appendectomy Female Surgical History: Reports: Hysterectomy Musculoskeletal Surgical History: Reports: Other (See Below) Other Musculoskeletal Surgeries/Procedures:: knee surgery left Social & Family History - Family History Family Medical History: Noncontributory - Caffeine Use Caffeine Use: Reports: None - Living Situation & Occupation Living situation: Reports: Occupation: Retired (lives with ) ED ROS GENERAL - Review of Systems Review Of Systems: See Below Constitutional: Reports: Weakness (chronic from her MS) HEENT: Reports: No Symptoms Respiratory: Reports: Shortness of Breath. Denies: Wheezing, Cough, Sputum, Hemoptysis Cardiovascular: Reports: No Symptoms GI/Abdominal: Reports: No Symptoms, Other (Has celiac dz) : Reports: No Symptoms Musculoskeletal: Reports: No Symptoms Skin: Reports: No Symptoms Neurological: Reports: No Symptoms Psychiatric: Reports: No Symptoms ED EXAM, GENERAL - Physical Exam Exam: See Below Exam Limited By: No Limitations General Appearance: Alert, WD/WN, Mild Distress Eye Exam: Bilateral Eye: Normal Inspection Ears: Normal External Exam, Normal Canal, Hearing Grossly Normal Ear Exam: Bilateral Ear: Auricle Normal, Canal Normal Nose: Normal Inspection, No Blood Throat/Mouth: Normal Inspection, Normal Lips, Normal Oropharynx, Normal Voice, No Airway Compromise Head: Atraumatic, Normocephalic Neck: Normal Inspection Respiratory/Chest: No Respiratory Distress, Lungs Clear, Decreased Breath Sounds , Other (mild tachypnea) Cardiovascular: Regular Rate, Rhythm, No Edema, Tachycardia GI/Abdominal: Normal Bowel Sounds, Soft, Non-Tender, No Distention Back Exam: Normal Inspection. No: CVA Tenderness (R), CVA Tenderness (L) Extremities: Normal Inspection, Normal Range of Motion, Non-Tender, No Pedal Edema Neurological: Alert, Oriented, CN II-XII Intact, Normal Cognition, No Motor/ Sensory Deficits Psychiatric: Normal Affect, Normal Mood Skin Exam: Warm, Dry, Intact, Normal Color, No Rash EKG INTERPRETATION EKG Date: 10/22/19 Time: 05:20 Rhythm: NSR Rate (Beats/Min): 114 [place]: RAD-Right [place] Deviation P-Wave: Present QRS: Normal ST-T: Normal QT: Normal Comparison: Change From Previous EKG (significant rate increase from 79 to 114 per min.) Course - Vital Signs Last Recorded V/S: Last Vital Signs Temp 98.9 F 10/22/19 05:45 Pulse 67 10/22/19 08:27 Resp 26 H 10/22/19 08:27 BP 127/59 L 10/22/19 08:27 Pulse Ox 93 L 10/22/19 08:27 - Orders/Labs/Meds Orders: Active Orders 24 hr Category Date Time Status Cardiac Monitoring [RC] .As Directed Care 10/22/19 05:47 Active RT Aerosol Therapy [RC] ASDIRECTED Care 10/22/19 08:49 Active Iopamidol [Isovue-370 (76%)] Med 10/22/19 07:30 Active 100 ml IV . DIRECTED Sodium Chloride 0.9% [Normal Saline] 100 ml Med 10/22/19 07:30 Active IV ASDIRECTED Sodium Chloride 0.9% [Saline Flush] Med 10/22/19 05:47 Active 10 ml FLUSH ASDIRECTED PRN Sodium Chloride 0.9% [Saline Flush] Med 10/22/19 07:30 Active 10 ml FLUSH ONETIME Saline Lock Insert [OM.PC] Routine Oth 10/22/19 05:47 Ordered Medication Orders Sodium Chloride (Normal Saline) 100 mls @ 4 mls/sec IV ASDIRECTED CHICO Last Admin: 10/22/19 07:20 Dose: 4 mls/sec Iopamidol (Isovue-370 (76%)) 100 ml IV . DIRECTED CHICO Last Admin: 10/22/19 07:20 Dose: 100 ml Sodium Chloride (Saline Flush) 10 ml FLUSH ASDIRECTED PRN PRN Reason: Keep Vein Open Last Admin: 10/22/19 07:59 Dose: 10 ml Sodium Chloride (Saline Flush) 10 ml FLUSH ONETIME CHICO Last Admin: 10/22/19 07:20 Dose: 10 ml Labs: Laboratory Tests 10/22/19 10/22/19 10/22/19 Range/Units 06:01 06:01 06:01 WBC 11.6 H (4.5-11.0) K/uL RBC 5.00 (3.30-5.50) M/uL Hgb 14.4 (12.0-15.0) g/dL Hct 45.3 (36.0-48.0) % MCV 91 (80-98) fL MCH 29 (27-31) pg MCHC 32 (32-36) % Plt Count 297 (150-400) K/uL D-Dimer, Quantitative 730 H (0.0-400.0) ng/mL Sodium 140 (140-148) mmol/L Potassium 4.4 (3.6-5.2) mmol/L Chloride 101 (100-108) mmol/L Carbon Dioxide 30 (21-32) mmol/L Anion Gap 8.8 (5.0-14.0) mmol/L BUN 12 (7-18) mg/dL Creatinine 0.7 (0.6-1.0) mg/dL Est Cr Clr Drug Dosing 57.35 mL/min Estimated GFR (MDRD) > 60 (>60) Glucose 118 H (74-106) mg/dL Calcium 9.5 (8.5-10.1) mg/dL Troponin I < 0.017 (0.000-0.056) ng/mL TSH, Ultra Sensitive (0.358-3.740) uIU/mL Urine Color (YELLOW) Urine Appearance (CLEAR) Urine pH (5.0-8.0) Ur Specific [place] (1.008-1.030) Urine Protein (NEGATIVE) mg/dL Urine Glucose (UA) (NEGATIVE) mg/dL Urine Ketones (NEGATIVE) mg/dL Urine Occult Blood (NEGATIVE) Urine Nitrite (NEGATIVE) Urine Bilirubin (NEGATIVE) Urine Urobilinogen (0.2-1.0) EU/dL Ur Leukocyte Esterase (NEGATIVE) Urine RBC (0-5) Urine WBC (0-5) Ur Epithelial Cells Amorphous Sediment Urine Bacteria Urine Mucus 10/22/19 10/22/19 Range/Units 06:24 08:45 WBC (4.5-11.0) K/uL RBC (3.30-5.50) M/uL Hgb (12.0-15.0) g/dL Hct (36.0-48.0) % MCV (80-98) fL MCH (27-31) pg MCHC (32-36) % Plt Count (150-400) K/uL D-Dimer, Quantitative (0.0-400.0) ng/mL Sodium (140-148) mmol/L Potassium (3.6-5.2) mmol/L Chloride (100-108) mmol/L Carbon Dioxide (21-32) mmol/L Anion Gap (5.0-14.0) mmol/L BUN (7-18) mg/dL Creatinine (0.6-1.0) mg/dL Est Cr Clr Drug Dosing mL/min Estimated GFR (MDRD) (>60) Glucose (74-106) mg/dL Calcium (8.5-10.1) mg/dL Troponin I (0.000-0.056) ng/mL TSH, Ultra Sensitive 1.006 (0.358-3.740) uIU/mL Urine Color Yellow (YELLOW) Urine Appearance Clear (CLEAR) Urine pH 7.5 (5.0-8.0) Ur Specific [place] 1.015 (1.008-1.030) Urine Protein Negative (NEGATIVE) mg/dL Urine Glucose (UA) Negative (NEGATIVE) mg/dL Urine Ketones Negative (NEGATIVE) mg/dL Urine Occult Blood Trace-intact H (NEGATIVE) Urine Nitrite Negative (NEGATIVE) Urine Bilirubin Negative (NEGATIVE) Urine Urobilinogen 0.2 (0.2-1.0) EU/dL Ur Leukocyte Esterase Negative (NEGATIVE) Urine RBC 0-5 (0-5) Urine WBC Not seen (0-5) Ur Epithelial Cells Not seen Amorphous Sediment Rare Urine Bacteria Not seen Urine Mucus Not seen Meds: Medications Generic Name Dose Route Start Last Admin Trade Name Freq PRN Reason Stop Dose Admin Sodium Chloride 100 mls @ 4 mls/sec 10/22/19 07:30 10/22/19 07:20 Normal Saline IV 4 mls/sec ASDIRECTED CHICO Administration Iopamidol 100 ml 10/22/19 07:30 10/22/19 07:20 Isovue-370 (76%) IV 100 ml . DIRECTED CHICO Administration Sodium Chloride 10 ml 10/22/19 05:47 10/22/19 07:59 Saline Flush FLUSH 10 ml ASDIRECTED PRN Administration Keep Vein Open Sodium Chloride 10 ml 10/22/19 07:30 10/22/19 07:20 Saline Flush FLUSH 10 ml ONETIME CHICO Administration Discontinued Medications Generic Name Dose Route Start Last Admin Trade Name Freq PRN Reason Stop Dose Admin Albuterol 2.5 mg 10/22/19 08:48 10/22/19 09:21 Proventil Neb Soln NEB 10/22/19 08:49 2.5 mg ONETIME ONE Administration Aspirin 324 mg 10/22/19 05:53 10/22/19 06:03 Aspirin PO 10/22/19 05:54 Not Given ONETIME ONE Carvedilol 25 mg 10/22/19 05:53 10/22/19 06:02 Coreg PO 10/22/19 05:54 25 mg ONETIME ONE Administration Hydromorphone HCl 0.25 mg 10/22/19 06:40 Dilaudid IVPUSH 10/22/19 06:41 ONETIME ONE Methylprednisolone Sodium Succinate 125 mg 10/22/19 06:09 10/22/19 06:17 Solu-Medrol IVPUSH 10/22/19 06:10 125 mg ONETIME ONE Administration - Radiology Interpretation Free Text/Narrative:: CXR- IMPRESSION: 1. 1 cm left perihilar nodular opacity could represent infiltrate versus possible nodule. Recommend follow up imaging to evaluate for persistence. Dictated by Manda Blair MD @ Oct 22 2019 6:39AM CTA chest- CT Results Date: 10/22/19 Departure - Departure Disposition: Admitted As Inpatient 68 Clinical Impression: COPD exacerbation Referrals: PCP,None [Primary Care Provider] - Forms: ED Department Discharge - My Orders Last 24 Hours: My Active Orders 10/22/19 07:30 Iopamidol [Isovue-370 (76%)] 100 ml IV . DIRECTED Sodium Chloride 0.9% [Normal Saline] 100 ml IV ASDIRECTED Sodium Chloride 0.9% [Saline Flush] 10 ml FLUSH ONETIME 10/22/19 08:49 RT Aerosol Therapy [RC] ASDIRECTED - Assessment/Plan Last 24 Hours: My Active Orders 10/22/19 07:30 Iopamidol [Isovue-370 (76%)] 100 ml IV . DIRECTED Sodium Chloride 0.9% [Normal Saline] 100 ml IV ASDIRECTED Sodium Chloride 0.9% [Saline Flush] 10 ml FLUSH ONETIME 10/22/19 08:49 RT Aerosol Therapy [RC] ASDIRECTED <Franc Chavez - Last Filed: 10/22/19 09:39> Departure - Departure Time of Disposition: 09:39 Condition: Poor - Assessment/Plan Plan: Assessment Acuity = acute Site and laterality = COPD exacerbation Etiology = unknown Manifestations = dyspnea Location of injury = Home Lab values = CBC, BMP urinalysis unremarkable d-dimer elevated at 730 CT scan of the chest shows no pulmonary emboli does have significant emphysema however no pulmonary findings there is a new irregular nodule superior right lobe of uncertain significance also an 8 mm right nodule in the thyroid which is not seen in prior studies both of which need follow-up Plan Call discussed case with hospitalist service station console operator at [phone] he kindly agreed to come to the emergency department and evaluate for admission This note was dictated using [employer] voice recognition software please call with any questions on syntax or grammar.
[2019-10-22] MEDS ORDERED: methylPREDNISolone Sodium Succinate 125 MG/2 ML SDV IVPUSH ONE (06:09)
[2019-10-22] MEDS ORDERED: HYDROmorphone 0.5 MG/0.5 ML Syringe IVPUSH ONE (06:40)
--- NOTE | 2019-10-22 06:42 | CRLCR ---
Shortness of breath. Comparison chest x-ray 05/11/2019. Findings: : Patient is rotated. Normal cardiac mediastinal silhouette. Left perihilar 1 cm nodular opacity. Right lung is clear. No effusion. No pneumothorax. IMPRESSION: 1. 1 cm left perihilar nodular opacity could represent infiltrate versus possible nodule. Recommend follow up imaging to evaluate for persistence. Dictated by Manda Blair MD @ Oct 22 2019 6:39AM Signed by Dr. Manda Blair @ Oct 22 2019 6:40AM
[2019-10-22] MEDS ORDERED: Iopamidol 755 Mg/ML 100 ML Bottle IV SCH (07:30)
[2019-10-22] MEDS ORDERED: Sodium Chloride 0.9% 100 ML IV SCH (07:30)
[2019-10-22] MEDS ORDERED: Sodium Chloride 0.9% 10 ML Syringe FLUSH SCH (07:30)
[2019-10-22] MEDS ORDERED: Albuterol 0.083% 2.5 MG/3 ML Neb Soln NEB ONE (08:48)
--- NOTE | 2019-10-22 08:52 | CRLCT ---
INDICATION: Shortness of breath tachycardia elevated D-dimers Technique CT PE with 100 mL Isovue-370. Coronal and sagittal re-formatted images obtained. COMPARISON: Comparison chest x-ray 10/22/2019. CT chest 12/05/2007. The report is not available FINDINGS: 8 mm right thyroid nodule. This is not seen on the prior study. Normal caliber thoracic aorta without aneurysm. Adequate opacification of the pulmonary arteries. No pulmonary emboli. Mildly prominent mediastinal nodes subcentimeter size. Heart size normal no pericardial effusion. Tiny pericardial effusion. Mild apical l pleural parenchymal fibrotic change. Emphysema. No central endobronchial lesions slight mucus in the tracheal air column and right bronchus. Left basilar strandy atelectasis. No effusion. No left upper lobe perihilar nodule or opacity seen. In the superior right lower lobe there is a slightly irregular 7 mm nodular density series 6 image 78 this could represent a nodule or an area of nodule scarring follow-up is recommended. Lungs are otherwise clear. Stable 2.2 centimeter low-density right adrenal nodule and 9 millimeter left adrenal nodule. No suspicious bony lesions. Impression: 1. No pulmonary emboli. Normal caliber thoracic aorta without aneurysm or dissection. 2. Emphysema. Left basilar strandy atelectasis. Lungs are clear of acute pulmonary findings. No left perihilar/upper lobe nodule or opacity. 3. Slightly irregular nodule in the superior right lower lobe measuring 7 millimeters could represent a nodule versus nodular scarring. Follow-up is recommended. Recommend repeat imaging in 3 months to assess for stability. Please note that all CT scans at this facility use dose modulation, iterative reconstruction, and/or weight-based dosing when appropriate to reduce radiation dose to as low as reasonably achievable. Dictated by Manda Blair MD @ Oct 22 2019 7:54AM (Electronically Signed)
--- NOTE | 2019-10-22 13:16 | PCM.HP.2 ---
H&P History of Present Illness - General Date of Service: 10/22/19 Admit Problem/Dx: Admission Diagnosis/Problem Admission Diagnosis/Problem Acute exacerbation of chronic obstructive airways disease Source of Information: Patient, Family, Provider History Limitations: Reports: No Limitations - History of Present Illness Initial Comments - Free Text/Narative: CC: I knew I needed help HPI: Alicia presents to the emergency room today with shortness of breath and weakness. She has been having difficulty with shortness of breath for several weeks and has been on antibiotics for nearly 3 weeks without much improvement. She has a cough which is usually dry and nonproductive of sputum. She does not report any chest pain. She reports subjective fevers and chills. Shortness of breath has been worse over the past 48 hours. She was very short of breath this morning and summoned an ambulance. She has been using inhalers but they did not provide relief this morning. She normally uses 1 L of supplemental oxygen but has had to increase this to 2 L because of increased shortness of breath. She has a possible sick contact about 2 weeks ago with upper respiratory symptoms. No complaints of nausea or abdominal pain. She does feel weak and has diffuse myalgias. She thinks that her multiple sclerosis is flaring up because of the illness. Appetite has been decreased. Energy has been decreased. No change in bowel or bladder function. Work-up in the emergency room included laboratory studies, chest x-ray and a CT pulmonary angiogram. She has mild leukocytosis but chest x-ray was clear other than a possible lung nodule. CT scan did not show evidence for pulmonary embolism but did document a 7 mm right lung nodule that will need follow-up in a few months. She will be admitted for management of an acute exacerbation of COPD likely secondary to either viral infection or environmental factors with increased hypoxia from baseline. Generalized Pain Score (Numeric/FACES): 2 - Related Data Allergies/Adverse Reactions: Allergies Allergy/AdvReac Type Severity Reaction Status Date / Time acetaminophen [From Tylenol] Allergy Severe Rash Verified 05/11/19 06:12 gluten Allergy Severe Swelling Verified 05/11/19 06:12 latex Allergy Severe Swelling Verified 05/11/19 06:12 Penicillins Allergy Severe Swelling Verified 05/11/19 06:12 codeine Allergy Swelling Verified 05/11/19 06:12 naproxen [From Aleve] Allergy Hallucinati Verified 05/11/19 06:12 ons prednisone Allergy Swelling Verified 05/11/19 06:12 steroids Allergy Swelling Uncoded 05/11/19 06:12 Home Medications: Home Meds Albuterol [Proventil HFA] 2 puff INH Q4H PRN 01/15/18 [History] Latanoprost [Xalatan 0.005% Ophth Soln] 1 drop EYEBOTH BEDTIME 01/15/18 [History ] Mineral Oil/Petrolatum,White [Artificial Tears Eye Ointment] 3.5 gm OP BEDTIME 01/15/18 [History] Sod Chlor&Bicarb/Squeez Bottle [Beacon Saline Nasal Rinse Kit] 1 dose HYACINTH TID PRN 01/15/18 [History] Metoprolol Succinate [Toprol Xl] 25 mg PO DAILY 07/25/18 [History] Lactobacillus Acidophilus [Acidophilus Lactobacillus] 1 each PO BID #60 capsule 07/26/18 [Rx] Famotidine [Pepcid AC] 10 mg PO DAILY 10/29/18 [History] Acetaminophen 325 mg PO DAILY 10/22/19 [History] Cefdinir [Omnicef 250 MG/5 ML Susp] 250 mg PO ASDIRECTED 10/22/19 [History] EPINEPHrine [Epinephrine] 0.3 mg IM ASDIRECTED 10/22/19 [History] tiZANidine [Zanaflex] 4 mg PO TID 10/22/19 [History] Past Medical History HEENT History: Reports: Glaucoma, Impaired Vision Cardiovascular History: Reports: Other (See Below) Other Cardiovascular History: mitral valve prolapse Respiratory History: Reports: Asthma, Bronchitis, Recurrent Gastrointestinal History: Reports: Celiac Disease, GERD [employer] History: Reports: Endometriosis Neurological History: Reports: MS Dermatologic History: Reports: Urticaria - Infectious Disease History Infectious Disease History: Reports: Chicken Pox, Measles, Mumps, Shingles - Past Surgical History HEENT Surgical History: Reports: Naso-Sinus Surgery, Polypectomy, Other (See Below) Other HEENT Surgeries/Procedures: "straighten septum" GI Surgical History: Reports: Appendectomy Female Surgical History: Reports: Hysterectomy Musculoskeletal Surgical History: Reports: Other (See Below) Other Musculoskeletal Surgeries/Procedures:: knee surgery left Social & Family History - Family History Family Medical History: Noncontributory - Tobacco Use Smoking Status *Q: Former Smoker Years of Tobacco use: 55 Used Tobacco, but Quit: Yes Month/Year Tobacco Last Used: 2013 - Caffeine Use Caffeine Use: Reports: None - Alcohol Use Alcohol Use History: No - Recreational Drug Use Recreational Drug Use: No - Living Situation & Occupation Living situation: Reports: Occupation: Retired (lives with ) H&P Review of Systems - Review of Systems: Review Of Systems: See Below Free Text/Narrative: A complete 12 point review of systems was obtained. Pertinent positives and negatives are noted in the history of present illness. All other systems were reviewed and were negative except as noted. Exam - Exam Exam: See Below - Vital Signs Vital Signs: Last Vital Signs Temp 37.2 C 10/22/19 05:45 Pulse 82 10/22/19 10:00 Resp 22 H 10/22/19 10:00 BP 112/60 10/22/19 10:00 Pulse Ox 95 10/22/19 10:00 Weight: 53.977 kg - Exam Quality Assessment: Supplemental Oxygen General: Alert, Oriented, Cooperative. No: Mild Distress HEENT: Conjunctiva Clear. No: Mucosa Moist & [place] (dry), Scleral Icterus Neck: Supple, Trachea Midline. No: Lymphadenopathy Lungs: Decreased Breath Sounds, Wheezing. No: Normal Respiratory Effort ( increased work of breathing) Cardiovascular: Regular Rate, Regular Rhythm. No: Systolic Murmur GI/Abdominal Exam: Normal Bowel Sounds, Soft, Non-Tender, No Distention Back Exam: No: Full Range of Motion Extremities: No: No Pedal Edema, Increased Warmth Peripheral Pulses: 2+: Dorsalis Pedis (L), Dorsalis Pedis (R) Skin: Warm, Dry Neuro Extensive - Mental Status: Alert, Oriented x3, Nl Response to Commands Neuro Extensive - Motor, Sensory, Reflexes: No: Dysarthria, Abnormal Motor, Tremor Psychiatric: Alert, Normal Affect - Patient Data Lab Results Last 24 hrs: Laboratory Results - last 24 hr 10/22/19 10/22/19 10/22/19 Range/Units 06:01 06:01 06:01 WBC 11.6 H (4.5-11.0) K/uL RBC 5.00 (3.30-5.50) M/uL Hgb 14.4 (12.0-15.0) g/dL Hct 45.3 (36.0-48.0) % MCV 91 (80-98) fL MCH 29 (27-31) pg MCHC 32 (32-36) % Plt Count 297 (150-400) K/uL D-Dimer, Quantitative 730 H (0.0-400.0) ng/mL Sodium 140 (140-148) mmol/L Potassium 4.4 (3.6-5.2) mmol/L Chloride 101 (100-108) mmol/L Carbon Dioxide 30 (21-32) mmol/L Anion Gap 8.8 (5.0-14.0) mmol/L BUN 12 (7-18) mg/dL Creatinine 0.7 (0.6-1.0) mg/dL Est Cr Clr Drug Dosing 57.35 mL/min Estimated GFR (MDRD) > 60 (>60) Glucose 118 H (74-106) mg/dL Calcium 9.5 (8.5-10.1) mg/dL Troponin I < 0.017 (0.000-0.056) ng/mL Procalcitonin ng/mL TSH, Ultra Sensitive (0.358-3.740) uIU/mL Urine Color (YELLOW) Urine Appearance (CLEAR) Urine pH (5.0-8.0) Ur Specific [place] (1.008-1.030) Urine Protein (NEGATIVE) mg/dL Urine Glucose (UA) (NEGATIVE) mg/dL Urine Ketones (NEGATIVE) mg/dL Urine Occult Blood (NEGATIVE) Urine Nitrite (NEGATIVE) Urine Bilirubin (NEGATIVE) Urine Urobilinogen (0.2-1.0) EU/dL Ur Leukocyte Esterase (NEGATIVE) Urine RBC (0-5) Urine WBC (0-5) Ur Epithelial Cells Amorphous Sediment Urine Bacteria Urine Mucus 10/22/19 10/22/19 10/22/19 Range/Units 06:24 08:45 09:40 WBC (4.5-11.0) K/uL RBC (3.30-5.50) M/uL Hgb (12.0-15.0) g/dL Hct (36.0-48.0) % MCV (80-98) fL MCH (27-31) pg MCHC (32-36) % Plt Count (150-400) K/uL D-Dimer, Quantitative (0.0-400.0) ng/mL Sodium (140-148) mmol/L Potassium (3.6-5.2) mmol/L Chloride (100-108) mmol/L Carbon Dioxide (21-32) mmol/L Anion Gap (5.0-14.0) mmol/L BUN (7-18) mg/dL Creatinine (0.6-1.0) mg/dL Est Cr Clr Drug Dosing mL/min Estimated GFR (MDRD) (>60) Glucose (74-106) mg/dL Calcium (8.5-10.1) mg/dL Troponin I (0.000-0.056) ng/mL Procalcitonin < 0.05 ng/mL TSH, Ultra Sensitive 1.006 (0.358-3.740) uIU/mL Urine Color Yellow (YELLOW) Urine Appearance Clear (CLEAR) Urine pH 7.5 (5.0-8.0) Ur Specific [place] 1.015 (1.008-1.030) Urine Protein Negative (NEGATIVE) mg/dL Urine Glucose (UA) Negative (NEGATIVE) mg/dL Urine Ketones Negative (NEGATIVE) mg/dL Urine Occult Blood Trace-intact H (NEGATIVE) Urine Nitrite Negative (NEGATIVE) Urine Bilirubin Negative (NEGATIVE) Urine Urobilinogen 0.2 (0.2-1.0) EU/dL Ur Leukocyte Esterase Negative (NEGATIVE) Urine RBC 0-5 (0-5) Urine WBC Not seen (0-5) Ur Epithelial Cells Not seen Amorphous Sediment Rare Urine Bacteria Not seen Urine Mucus Not seen Result Diagrams: 10/22/19 06:01 10/22/19 06:01 Imaging Impressions Last 24 hrs: CXR - images personally reviewed - lungs clear, possible right lung nodule. No effusion or infiltrate CT pulmonary angio - No PE. No pneumonia. No effusion. 7 mm right lung nodule *Q Meaningful Use (ADM) - VTE Risk Assess *Q Each Risk Factor Represents 1 Point: Abnormal Pulmonary Function (COPD) Total Score 1 Point Risk Factors: 1 Each Risk Factor Represents 2 Points: None Total Score 2 Point Risk Factors: 0 Each Risk Factor Represents 3 Points: Age 75 Years or Greater Total Score 3 Point Risk Factors: 3 Each Risk Factor Represents 5 Points: None Total Score 5 Point Risk Factors: 0 Venous Thromboembolism Risk Factor Score *Q: 4 - Problem List (1) COPD exacerbation SNOMED Code(s): 397559454 ICD Code: J44.1 - CHRONIC OBSTRUCTIVE PULMONARY DISEASE W (ACUTE) EXACERBATION Status: Acute Current Visit: Yes (2) Acute and chronic respiratory failure with hypoxia SNOMED Code(s): 07389479, 006236130 ICD Code: J96.21 - ACUTE AND CHRONIC RESPIRATORY FAILURE WITH HYPOXIA Status: Acute Current Visit: Yes (3) Multiple sclerosis SNOMED Code(s): 77399430 ICD Code: G35 - MULTIPLE SCLEROSIS Status: Chronic Current Visit: No (4) Celiac disease SNOMED Code(s): 759403533 ICD Code: K90.0 - CELIAC DISEASE Status: Chronic Current Visit: No Problem List Initiated/Reviewed/Updated: Yes Orders Last 24hrs: Active Orders 24 hr Category Date Time Status Patient Status Manage Transfer [TRANSFER] Routine ADT 10/22/19 12:58 Ordered Cardiac Monitoring [RC] .As Directed Care 10/22/19 05:47 Active RT Aerosol Therapy [RC] ASDIRECTED Care 10/22/19 08:49 Active Iopamidol [Isovue-370 (76%)] Med 10/22/19 07:30 Active 100 ml IV . DIRECTED Sodium Chloride 0.9% [Normal Saline] 100 ml Med 10/22/19 07:30 Active IV ASDIRECTED Sodium Chloride 0.9% [Saline Flush] Med 10/22/19 05:47 Active 10 ml FLUSH ASDIRECTED PRN Sodium Chloride 0.9% [Saline Flush] Med 10/22/19 07:30 Active 10 ml FLUSH ONETIME Saline Lock Insert [OM.PC] Routine Oth 10/22/19 05:47 Ordered Resuscitation Status Routine Resus Stat 10/22/19 12:59 Ordered Medication Orders Sodium Chloride (Normal Saline) 100 mls @ 4 mls/sec IV ASDIRECTED [facility] Last Admin: 10/22/19 07:20 Dose: 4 mls/sec Iopamidol (Isovue-370 (76%)) 100 ml IV . DIRECTED [facility] Last Admin: 10/22/19 07:20 Dose: 100 ml Sodium Chloride (Saline Flush) 10 ml FLUSH ASDIRECTED PRN PRN Reason: Keep Vein Open Last Admin: 10/22/19 07:59 Dose: 10 ml Sodium Chloride (Saline Flush) 10 ml FLUSH ONETIME [facility] Last Admin: 10/22/19 07:20 Dose: 10 ml Assessment/Plan Comment:: ASSESSMENT AND PLAN - Acute exacerbation of COPD-complicated by acute on chronic respiratory failure with baseline oxygen dependence. Increased hypoxia from baseline. Suspect either viral or environmental factors. Significant shortness of breath and mild cough. Wheezing on examination. She has been on antibiotics but has worsened despite this. Procalcitonin level is undetectable. -Twice daily methylprednisolone -Scheduled and as needed nebulizers -Supplement oxygen as needed Multiple sclerosis-increased weakness from baseline likely secondary to acute illness. Hopefully the steroids will improve her strength as well. -Steroids as above -Physical therapy Maintenance issues - - DVT prophylaxis -mechanical - GI prophylaxis -H2 joe - Nutrition -gluten-free - Currie catheter -not indicated CODE STATUS -DNR/DNI Admission justification -this patient will be admitted for inpatient services and is medically appropriate meeting medical necessity for inpatient admission as outlined in my documentation. I reasonably expect the patient will require inpatient services that span a period time over 2 midnights. I reasonably expect this patient to be discharged or transferred within 96 hours [facility]. Disposition -I would anticipate discharge home after the hospital stay Primary care physician -Dr Trevor Cheung M.D. - Mortality Measure Prognosis:: Good
[2019-10-22] MEDS ORDERED: Ondansetron 4 MG Tab.DIS PO PRN (14:24)
[2019-10-22] MEDS ORDERED: Non-Formulary Medication 1 Each (Albuterol [Proventil Hfa] 2 PUFF) INH PRN (14:24)
[2019-10-22] MEDS ORDERED: Ondansetron 4 MG/2 ML SDV IV PRN (14:24)
[2019-10-22] MEDS ORDERED: ACETAMINOPHEN 325 MG PO PRN (14:24)
[2019-10-22] MEDS ORDERED: Magnesium Hydroxide 400 MG/5 ML Susp 30 ML Cup PO PRN (14:24)
[2019-10-22] MEDS ORDERED: Albuterol 8 GM Inhaler INH PRN (14:42)
[2019-10-22] MEDS: ALBUTEROL NEB SCH ×2 (14:59→20:38)
[2019-10-22] MEDS: Famotidine 20 MG Tab (PTOM) PO SCH (16:07)
[2019-10-22] MEDS ORDERED: Non-Formulary Medication 1 Each (Latanoprost [Xalatan 0.005% Ophth Soln] 1 DROP) EYEBOTH SCH (21:00)
[2019-10-22] MEDS: LATANOPROST 0.005% EYEBOTH SCH (21:53)
[2019-10-23] MEDS ORDERED: tiZANidine 4 MG Tab**OWN MED PO PRN (01:45)
[2019-10-23] MEDS: ALBUTEROL NEB SCH ×4 (07:02→22:01)
[2019-10-23] MEDS: Metoprolol Succinate 25 MG Tab.ER (PTOM) PO SCH (08:11)
[2019-10-23] MEDS ORDERED: Famotidine 20 MG Tab (PTOM) PO SCH (09:00)
[2019-10-23] MEDS ORDERED: Non-Formulary Medication 1 Each (Metoprolol Succinate [Toprol Xl] 25 MG) PO SCH (09:00)
[2019-10-23] MEDS ORDERED: FAMOTIDINE 10 MG PO SCH (09:00)
--- NOTE | 2019-10-23 11:43 | PCM.PN ---
- General Info Date of Service: 10/23/19 Subjective Update: No acute events overnight. Patient did have some difficulty with anxiety which seems a little better this morning. Anxiety was driven by shortness of breath which is also a little better today. Her vital signs have been stable. She still feels weak and notes in particular that her trunk muscles and leg muscles are much weaker than usual. She blames this on multiple sclerosis. She remains on 2 L of supplemental oxygen but oxygenation is slowly improving. Unable to work with physical therapy this morning because of a coughing spell and resultant shortness of breath. Functional Status: Reports: Pain Controlled, Tolerating Diet - Review of Systems General: Reports: Weakness. Denies: Fever Pulmonary: Reports: Shortness of Breath, Cough - Patient Data Vitals - Most Recent: Last Vital Signs Temp 37.1 C 10/23/19 11:00 Pulse 95 10/23/19 11:00 Resp 16 10/23/19 11:00 BP 134/69 10/23/19 11:00 Pulse Ox 95 10/23/19 11:00 Weight - Most Recent: 53.977 kg I&O - Last 24 Hours: Intake & Output 10/22/19 10/23/19 10/23/19 22:59 06:59 14:59 Intake Total 120 480 Output Total 200 Balance 120 280 Lab Results Last 24 Hours: Laboratory Results - last 24 hr 10/23/19 10/23/19 Range/Units 05:30 05:30 WBC 11.4 H (4.5-11.0) K/uL RBC 4.83 (3.30-5.50) M/uL Hgb 14.0 (12.0-15.0) g/dL Hct 44.1 (36.0-48.0) % MCV 91 (80-98) fL MCH 29 (27-31) pg MCHC 32 (32-36) % Plt Count 306 (150-400) K/uL Sodium 138 L (140-148) mmol/L Potassium 4.1 (3.6-5.2) mmol/L Chloride 99 L (100-108) mmol/L Carbon Dioxide 31 (21-32) mmol/L Anion Gap 12.1 (5.0-14.0) mmol/L BUN 20 H D (7-18) mg/dL Creatinine 0.7 (0.6-1.0) mg/dL Est Cr Clr Drug Dosing 57.35 mL/min Estimated GFR (MDRD) > 60 (>60) Glucose 104 (74-106) mg/dL Calcium 9.5 (8.5-10.1) mg/dL Med Orders - Current: Current Medications Acetaminophen (Tylenol) 650 mg PO Q4H PRN PRN Reason: Pain (Mild 1-3)/fever Last Admin: 10/22/19 21:54 Dose: 650 mg Albuterol (Proventil Neb Soln) 2.5 mg NEB QIDRT [facility] Last Admin: 10/23/19 11:27 Dose: Not Given Albuterol (Ventolin Hfa) 0 gm INH Q4H PRN PRN Reason: Shortness of Breath Famotidine (Pepcid) 10 mg PO Q24H [facility] Last Admin: 10/22/19 16:07 Dose: 10 mg Latanoprost (Xalatan 0.005% Ophth Soln) 0 ml EYEBOTH BEDTIME [facility] Last Admin: 10/22/19 21:53 Dose: 1 drop Lorazepam (Ativan) 0.5 mg PO Q4H PRN PRN Reason: Anxiety Magnesium Hydroxide (Milk Of Magnesia) 30 ml PO Q12H PRN PRN Reason: Constipation Methylprednisolone (Medrol) 4 mg PO BIDMEALS [facility] Last Admin: 10/23/19 08:08 Dose: 4 mg Metoprolol Succinate (Toprol Xl) 25 mg PO DAILY [facility] Last Admin: 10/23/19 08:11 Dose: 25 mg Ondansetron HCl (Zofran Odt) 4 mg PO Q6H PRN PRN Reason: Nausea able to take PO Ondansetron HCl (Zofran) 4 mg IV Q6H PRN PRN Reason: Nausea/Vomiting Senna/Docusate Sodium (Senna Plus) 1 tab PO BID PRN PRN Reason: Constipation Sodium Chloride (Saline Flush) 10 ml FLUSH ASDIRECTED PRN PRN Reason: Keep Vein Open Last Admin: 10/22/19 07:59 Dose: 10 ml Tizanidine HCl (Zanaflex) 4 mg PO Q8H PRN PRN Reason: Muscle Spasm Last Admin: 10/23/19 02:02 Dose: 1 mg Discontinued Medications Albuterol (Proventil Neb Soln) 2.5 mg NEB ONETIME ONE Stop: 10/22/19 08:49 Last Admin: 10/22/19 09:21 Dose: 2.5 mg Aspirin (Aspirin) 324 mg PO ONETIME ONE Stop: 10/22/19 05:54 Last Admin: 10/22/19 06:03 Dose: Not Given Carvedilol (Coreg) 25 mg PO ONETIME ONE Stop: 10/22/19 05:54 Last Admin: 10/22/19 06:02 Dose: 25 mg Hydromorphone HCl (Dilaudid) 0.25 mg IVPUSH ONETIME ONE Stop: 10/22/19 06:41 Last Admin: 10/22/19 06:50 Dose: 0.25 mg Sodium Chloride (Normal Saline) 100 mls @ 4 mls/sec IV ASDIRECTED [facility] Last Admin: 10/22/19 07:20 Dose: 4 mls/sec Iopamidol (Isovue-370 (76%)) 100 ml IV . DIRECTED [facility] Last Admin: 10/22/19 07:20 Dose: 100 ml Methylprednisolone Sodium Succinate (Solu-Medrol) 125 mg IVPUSH ONETIME ONE Stop: 10/22/19 06:10 Last Admin: 10/22/19 06:17 Dose: 125 mg Sodium Chloride (Saline Flush) 10 ml FLUSH ONETIME [facility] Last Admin: 10/22/19 07:20 Dose: 10 ml - Exam Quality Assessment: Supplemental Oxygen General: Alert, Oriented, Cooperative, No Acute Distress Lungs: Normal Respiratory Effort, Wheezing (mild end exp left side, none on the right ). No: Crackles Cardiovascular: Regular Rate, Regular Rhythm GI/Abdominal Exam: Soft, No Distention Extremities: No Pedal Edema Psy/Mental Status: Alert, Normal Affect - Problem List & Annotations (1) COPD exacerbation SNOMED Code(s): 032219463 Code(s): J44.1 - CHRONIC OBSTRUCTIVE PULMONARY DISEASE W (ACUTE) EXACERBATION Status: Acute Current Visit: Yes (2) Acute and chronic respiratory failure with hypoxia SNOMED Code(s): 89928481, 731163904 Code(s): J96.21 - ACUTE AND CHRONIC RESPIRATORY FAILURE WITH HYPOXIA Status : Acute Current Visit: Yes (3) Multiple sclerosis SNOMED Code(s): 33580247 Code(s): G35 - MULTIPLE SCLEROSIS Status: Chronic Current Visit: No (4) Celiac disease SNOMED Code(s): 126052041 Code(s): K90.0 - CELIAC DISEASE Status: Chronic Current Visit: No - Problem List Review Problem List Initiated/Reviewed/Updated: Yes - My Orders Last 24 Hours: My Active Orders 10/22/19 12:59 Resuscitation Status Routine 10/22/19 14:24 Patient Status [ADT] Routine Communication Order [RC] ROUTINE Intake and Output [RC] QSHIFT Notify Provider Vital Signs [RC] ASDIRECTED Oxygen Therapy [RC] PRN RT Aerosol Therapy [RC] ASDIRECTED Up With Assistance [RC] ASDIRECTED VTE/DVT Education [RC] Per Unit Routine Vital Signs [RC] Q4H Acetaminophen [Tylenol] 650 mg PO Q4H PRN Docusate Sodium/Sennosides [Senna Plus] 1 tab PO BID PRN Magnesium Hydroxide [Milk of Magnesia] 30 ml PO Q12H PRN Ondansetron [Zofran ODT] 4 mg PO Q6H PRN Ondansetron [Zofran] 4 mg IV Q6H PRN Pressure Reduction Mattress [OM.PC] Routine Sequential Compression Device [OM.PC] Routine 10/22/19 14:42 Albuterol [Ventolin HFA] 0 gm INH Q4H PRN 10/22/19 15:00 Albuterol [Proventil Neb Soln] 2.5 mg NEB QIDRT 10/22/19 16:00 Famotidine [Pepcid] 10 mg PO Q24H 10/22/19 17:00 methylPREDNISolone [Medrol] 4 mg PO BIDMEALS 10/22/19 21:00 Latanoprost [Xalatan 0.005% Ophth Soln] 0 ml EYEBOTH BEDTIME 10/22/19 Dinner Gluten Free Diet [DIET] 10/23/19 07:00 PT Evaluation and Treatment [CONS] Routine 10/23/19 09:00 Metoprolol Succinate [Toprol XL] 25 mg PO DAILY 10/24/19 05:00 BASIC METABOLIC PANEL,BMP [CHEM] Timed CBC W/O DIFF,HEMOGRAM [HEME] Timed (1) 10/24/19 07:00 Echo Comp wo Cont [US] Routine - Plan Plan:: ASSESSMENT AND PLAN - Acute exacerbation of COPD-complicated by acute on chronic respiratory failure with baseline oxygen dependence. Slowly improving. Tolerating medication so far. Still requiring increased oxygen from baseline. Still very short of breath with any activity. -Twice daily methylprednisolone -Scheduled and as needed nebulizers -Supplement oxygen as needed Multiple sclerosis-increased weakness from baseline likely secondary to acute illness. Unable to work with physical therapy because of shortness of breath. -Steroids as above -Physical therapy Maintenance issues - - DVT prophylaxis -mechanical - GI prophylaxis -H2 joe - Nutrition -gluten-free - Currie catheter -not indicated CODE STATUS -DNR/DNI - this was clarified again today and patient does not wish to receive CPR but would be okay with receiving cardioversion or defibrillation. Disposition -I would anticipate discharge home after the hospital stay Primary care physician -Dr Trevor Cheung M.D.
[2019-10-23] MEDS: LORazepam 0.5 MG Tab PO PRN ×2 (12:08→23:03)
[2019-10-23] MEDS: Famotidine 20 MG Tab (PTOM) PO SCH (15:23)
[2019-10-23] MEDS: ALOE VERA TOP PRN (20:15)
[2019-10-23] MEDS: TROLAMINE SALICYLATE TOP PRN (20:15)
[2019-10-23] MEDS: LATANOPROST 0.005% EYEBOTH SCH (22:14)
[2019-10-24] MEDS: ALOE VERA TOP PRN (06:29)
[2019-10-24] MEDS: TROLAMINE SALICYLATE TOP PRN (06:29)
[2019-10-24] MEDS: ALBUTEROL NEB SCH ×4 (07:02→20:57)
[2019-10-24] MEDS: Metoprolol Succinate 25 MG Tab.ER (PTOM) PO SCH (10:04)
--- NOTE | 2019-10-24 10:09 | PCM.PN ---
- General Info Date of Service: 10/24/19 Subjective Update: There were no acute events overnight. Shortness of breath is better today. Supplemental oxygen requirements are decreasing. She did not have any fevers. Cough is a little bit more loose today. Patient does report that lorazepam helped with her anxiety but made her sleepy and is requesting a smaller dose. She feels that her multiple sclerosis is acting up again today and legs feel quite weak. Functional Status: Reports: Pain Controlled, Tolerating Diet - Review of Systems General: Reports: Weakness (legs ) Pulmonary: Reports: Shortness of Breath (mild) - Patient Data Vitals - Most Recent: Last Vital Signs Temp 36.6 C 10/24/19 07:11 Pulse 85 10/24/19 07:11 Resp 14 10/24/19 07:11 BP 130/65 10/24/19 07:11 Pulse Ox 100 10/24/19 07:11 Weight - Most Recent: 53.977 kg I&O - Last 24 Hours: Intake & Output 10/23/19 10/24/19 10/24/19 22:59 06:59 14:59 Output Total 400 300 Balance -400 -300 Lab Results Last 24 Hours: Laboratory Results - last 24 hr 10/24/19 10/24/19 Range/Units 04:19 04:19 WBC 7.4 (4.5-11.0) K/uL RBC 4.72 (3.30-5.50) M/uL Hgb 13.6 (12.0-15.0) g/dL Hct 43.6 (36.0-48.0) % MCV 92 (80-98) fL MCH 29 (27-31) pg MCHC 31 L (32-36) % Plt Count 303 (150-400) K/uL Sodium 140 (140-148) mmol/L Potassium 3.9 (3.6-5.2) mmol/L Chloride 100 (100-108) mmol/L Carbon Dioxide 33 H (21-32) mmol/L Anion Gap 10.9 (5.0-14.0) mmol/L BUN 20 H (7-18) mg/dL Creatinine 0.7 (0.6-1.0) mg/dL Est Cr Clr Drug Dosing 57.35 mL/min Estimated GFR (MDRD) > 60 (>60) Glucose 89 (74-106) mg/dL Calcium 9.1 (8.5-10.1) mg/dL Med Orders - Current: Current Medications Acetaminophen (Tylenol) 650 mg PO Q4H PRN PRN Reason: Pain (Mild 1-3)/fever Last Admin: 10/22/19 21:54 Dose: 650 mg Albuterol (Proventil Neb Soln) 2.5 mg NEB QIDRT [facility] Last Admin: 10/24/19 07:02 Dose: 2.5 mg Albuterol (Ventolin Hfa) 0 gm INH Q4H PRN PRN Reason: Shortness of Breath Famotidine (Pepcid) 10 mg PO Q24H [facility] Last Admin: 10/23/19 15:23 Dose: 10 mg Latanoprost (Xalatan 0.005% Ophth Soln) 0 ml EYEBOTH BEDTIME [facility] Last Admin: 10/23/19 22:14 Dose: 1 drop Magnesium Hydroxide (Milk Of Magnesia) 30 ml PO Q12H PRN PRN Reason: Constipation Methylprednisolone (Medrol) 4 mg PO BIDMEALS [facility] Last Admin: 10/24/19 07:09 Dose: 4 mg Metoprolol Succinate (Toprol Xl) 25 mg PO DAILY [facility] Last Admin: 10/23/19 08:11 Dose: 25 mg Ondansetron HCl (Zofran Odt) 4 mg PO Q6H PRN PRN Reason: Nausea able to take PO Ondansetron HCl (Zofran) 4 mg IV Q6H PRN PRN Reason: Nausea/Vomiting Senna/Docusate Sodium (Senna Plus) 1 tab PO BID PRN PRN Reason: Constipation Sodium Chloride (Saline Flush) 10 ml FLUSH ASDIRECTED PRN PRN Reason: Keep Vein Open Last Admin: 10/22/19 07:59 Dose: 10 ml Tizanidine HCl (Zanaflex) 4 mg PO Q8H PRN PRN Reason: Muscle Spasm Last Admin: 10/23/19 02:02 Dose: 1 mg Trolamine Salicylate (Aspercreme 10%) 0 gm TOP ASDIRECTED PRN PRN Reason: MUSCLE SORENESS Last Admin: 10/24/19 06:29 Dose: 1 applic Discontinued Medications Albuterol (Proventil Neb Soln) 2.5 mg NEB ONETIME ONE Stop: 10/22/19 08:49 Last Admin: 10/22/19 09:21 Dose: 2.5 mg Aspirin (Aspirin) 324 mg PO ONETIME ONE Stop: 10/22/19 05:54 Last Admin: 10/22/19 06:03 Dose: Not Given Carvedilol (Coreg) 25 mg PO ONETIME ONE Stop: 10/22/19 05:54 Last Admin: 10/22/19 06:02 Dose: 25 mg Hydromorphone HCl (Dilaudid) 0.25 mg IVPUSH ONETIME ONE Stop: 10/22/19 06:41 Last Admin: 10/22/19 06:50 Dose: 0.25 mg Sodium Chloride (Normal Saline) 100 mls @ 4 mls/sec IV ASDIRECTED [facility] Last Admin: 10/22/19 07:20 Dose: 4 mls/sec Iopamidol (Isovue-370 (76%)) 100 ml IV . DIRECTED [facility] Last Admin: 10/22/19 07:20 Dose: 100 ml Lorazepam (Ativan) 0.5 mg PO Q4H PRN PRN Reason: Anxiety Last Admin: 10/23/19 23:03 Dose: 0.5 mg Methylprednisolone Sodium Succinate (Solu-Medrol) 125 mg IVPUSH ONETIME ONE Stop: 10/22/19 06:10 Last Admin: 10/22/19 06:17 Dose: 125 mg Sodium Chloride (Saline Flush) 10 ml FLUSH ONETIME [facility] Last Admin: 10/22/19 07:20 Dose: 10 ml - Exam Quality Assessment: Supplemental Oxygen General: Alert, Oriented, Cooperative, No Acute Distress Lungs: Clear to Auscultation, Normal Respiratory Effort. No: Wheezing Cardiovascular: Regular Rate, Regular Rhythm GI/Abdominal Exam: Soft, No Distention Extremities: No Pedal Edema Peripheral Pulses: 2+: Dorsalis Pedis (L), Dorsalis Pedis (R) Skin: Warm, Dry Psy/Mental Status: Alert, Normal Affect - Problem List & Annotations (1) COPD exacerbation SNOMED Code(s): 765197089 Code(s): J44.1 - CHRONIC OBSTRUCTIVE PULMONARY DISEASE W (ACUTE) EXACERBATION Status: Acute Current Visit: Yes (2) Acute and chronic respiratory failure with hypoxia SNOMED Code(s): 53691707, 341054078 Code(s): J96.21 - ACUTE AND CHRONIC RESPIRATORY FAILURE WITH HYPOXIA Status : Acute Current Visit: Yes (3) Multiple sclerosis SNOMED Code(s): 12242348 Code(s): G35 - MULTIPLE SCLEROSIS Status: Chronic Current Visit: No (4) Celiac disease SNOMED Code(s): 881695534 Code(s): K90.0 - CELIAC DISEASE Status: Chronic Current Visit: No - Problem List Review Problem List Initiated/Reviewed/Updated: Yes - My Orders Last 24 Hours: My Active Orders 10/23/19 12:31 Trolamine Salicylate/Aloe Vera [Aspercreme 10%] 0 gm TOP ASDIRECTED PRN 10/23/19 13:07 Resuscitation Status Routine 10/24/19 07:00 Echo Comp wo Cont [US] Routine 10/24/19 10:07 LORazepam [Ativan] 0.25 mg PO Q4H PRN - Plan Plan:: ASSESSMENT AND PLAN - Acute exacerbation of COPD-complicated by acute on chronic respiratory failure with baseline oxygen dependence. Slowly improving both clinically and objectively. Still not great air movement and still fairly short of breath with any activity. -Twice daily methylprednisolone -Scheduled and as needed nebulizers -Supplement oxygen as needed Multiple sclerosis-increased weakness from baseline likely secondary to acute illness. Able to participate with physical therapy today. -Physical therapy Maintenance issues - - DVT prophylaxis -mechanical - GI prophylaxis -H2 joe - Nutrition -gluten-free - Currie catheter -not indicated CODE STATUS -DNR/DNI - this was clarified and patient does not wish to receive CPR but would be okay with receiving cardioversion or defibrillation. Disposition -I would anticipate discharge home with home care after the hospital stay Primary care physician -Dr Trevor Cheung M.D.
[2019-10-24] MEDS: Famotidine 20 MG Tab (PTOM) PO SCH (15:39)
[2019-10-24] MEDS: LORazepam 0.5 MG Tab PO PRN (18:21)
[2019-10-24] MEDS: LATANOPROST 0.005% EYEBOTH SCH (20:56)
[2019-10-25] MEDS: LORazepam 0.5 MG Tab PO PRN ×4 (01:13→23:23)
[2019-10-25] MEDS: ALBUTEROL NEB SCH ×4 (07:13→20:52)
--- NOTE | 2019-10-25 09:48 | PCM.PN ---
- General Info Date of Service: 10/25/19 Subjective Update: No acute events overnight. Shortness of breath continues to improve. She is now down to 1 L supplemental oxygen which is her baseline. She continues to report weakness and had some difficulty with muscle spasms in her torso as well as her right leg. Still feels weak and tired. She has not had any fevers. Functional Status: Reports: Pain Controlled, Tolerating Diet - Review of Systems General: Reports: Weakness, Fatigue Musculoskeletal: Reports: Other (muscle spasm of trunk and right leg ) - Patient Data Vitals - Most Recent: Last Vital Signs Temp 36.8 C 10/25/19 07:00 Pulse 80 10/25/19 07:13 Resp 18 10/25/19 07:00 BP 128/58 L 10/25/19 07:00 Pulse Ox 97 10/25/19 07:00 Weight - Most Recent: 53.977 kg I&O - Last 24 Hours: Intake & Output 10/24/19 10/25/19 10/25/19 22:59 06:59 14:59 Output Total 200 Balance -200 Med Orders - Current: Current Medications Acetaminophen (Tylenol) 650 mg PO Q4H PRN PRN Reason: Pain (Mild 1-3)/fever Last Admin: 10/22/19 21:54 Dose: 650 mg Albuterol (Proventil Neb Soln) 2.5 mg NEB QIDRT [facility] Last Admin: 10/25/19 07:13 Dose: 2.5 mg Albuterol (Ventolin Hfa) 0 gm INH Q4H PRN PRN Reason: Shortness of Breath Famotidine (Pepcid) 10 mg PO Q24H [facility] Last Admin: 10/24/19 15:39 Dose: 10 mg Latanoprost (Xalatan 0.005% Ophth Soln) 0 ml EYEBOTH BEDTIME [facility] Last Admin: 10/24/19 20:56 Dose: 1 drop Lorazepam (Ativan) 0.25 mg PO Q4H PRN PRN Reason: Anxiety Last Admin: 10/25/19 06:05 Dose: 0.25 mg Magnesium Hydroxide (Milk Of Magnesia) 30 ml PO Q12H PRN PRN Reason: Constipation Methylprednisolone (Medrol) 4 mg PO BIDMEALS [facility] Last Admin: 10/25/19 07:59 Dose: 4 mg Metoprolol Succinate (Toprol Xl) 25 mg PO DAILY [facility] Last Admin: 10/24/19 10:04 Dose: 25 mg Ondansetron HCl (Zofran Odt) 4 mg PO Q6H PRN PRN Reason: Nausea able to take PO Ondansetron HCl (Zofran) 4 mg IV Q6H PRN PRN Reason: Nausea/Vomiting Senna/Docusate Sodium (Senna Plus) 1 tab PO BID PRN PRN Reason: Constipation Sodium Chloride (Saline Flush) 10 ml FLUSH ASDIRECTED PRN PRN Reason: Keep Vein Open Last Admin: 10/22/19 07:59 Dose: 10 ml Tizanidine HCl (Zanaflex) 4 mg PO Q8H PRN PRN Reason: Muscle Spasm Last Admin: 10/23/19 02:02 Dose: 1 mg Trolamine Salicylate (Aspercreme 10%) 0 gm TOP ASDIRECTED PRN PRN Reason: MUSCLE SORENESS Last Admin: 10/24/19 06:29 Dose: 1 applic Discontinued Medications Albuterol (Proventil Neb Soln) 2.5 mg NEB ONETIME ONE Stop: 10/22/19 08:49 Last Admin: 10/22/19 09:21 Dose: 2.5 mg Aspirin (Aspirin) 324 mg PO ONETIME ONE Stop: 10/22/19 05:54 Last Admin: 10/22/19 06:03 Dose: Not Given Carvedilol (Coreg) 25 mg PO ONETIME ONE Stop: 10/22/19 05:54 Last Admin: 10/22/19 06:02 Dose: 25 mg Hydromorphone HCl (Dilaudid) 0.25 mg IVPUSH ONETIME ONE Stop: 10/22/19 06:41 Last Admin: 10/22/19 06:50 Dose: 0.25 mg Sodium Chloride (Normal Saline) 100 mls @ 4 mls/sec IV ASDIRECTED [facility] Last Admin: 10/22/19 07:20 Dose: 4 mls/sec Iopamidol (Isovue-370 (76%)) 100 ml IV . DIRECTED [facility] Last Admin: 10/22/19 07:20 Dose: 100 ml Lorazepam (Ativan) 0.5 mg PO Q4H PRN PRN Reason: Anxiety Last Admin: 10/23/19 23:03 Dose: 0.5 mg Methylprednisolone Sodium Succinate (Solu-Medrol) 125 mg IVPUSH ONETIME ONE Stop: 10/22/19 06:10 Last Admin: 10/22/19 06:17 Dose: 125 mg Sodium Chloride (Saline Flush) 10 ml FLUSH ONETIME [facility] Last Admin: 10/22/19 07:20 Dose: 10 ml - Exam Quality Assessment: Supplemental Oxygen General: Alert, Oriented, Cooperative, No Acute Distress Lungs: Clear to Auscultation, Normal Respiratory Effort Cardiovascular: Regular Rate, Regular Rhythm GI/Abdominal Exam: Soft, No Distention Extremities: No Pedal Edema. No: Increased Warmth Psy/Mental Status: Alert, Normal Affect - Problem List & Annotations (1) COPD exacerbation SNOMED Code(s): 559438873 Code(s): J44.1 - CHRONIC OBSTRUCTIVE PULMONARY DISEASE W (ACUTE) EXACERBATION Status: Acute Current Visit: Yes (2) Acute and chronic respiratory failure with hypoxia SNOMED Code(s): 74137087, 389249405 Code(s): J96.21 - ACUTE AND CHRONIC RESPIRATORY FAILURE WITH HYPOXIA Status : Acute Current Visit: Yes (3) Multiple sclerosis SNOMED Code(s): 12606824 Code(s): G35 - MULTIPLE SCLEROSIS Status: Chronic Current Visit: No (4) Celiac disease SNOMED Code(s): 712744021 Code(s): K90.0 - CELIAC DISEASE Status: Chronic Current Visit: No - Problem List Review Problem List Initiated/Reviewed/Updated: Yes - My Orders Last 24 Hours: My Active Orders 10/24/19 10:07 LORazepam [Ativan] 0.25 mg PO Q4H PRN - Plan Plan:: ASSESSMENT AND PLAN - Acute exacerbation of COPD-complicated by acute on chronic respiratory failure with baseline oxygen dependence. Ongoing clinical improvement and now back to her baseline supplemental oxygen requirement. -Twice daily methylprednisolone -Scheduled and as needed nebulizers -Supplement oxygen as needed Multiple sclerosis-still complains of subjective weakness but is making improvements. -Physical therapy Maintenance issues - - DVT prophylaxis -mechanical - GI prophylaxis -H2 joe - Nutrition -gluten-free - Currie catheter -not indicated CODE STATUS -DNR/DNI - this was clarified and patient does not wish to receive CPR but would be okay with receiving cardioversion or defibrillation. Disposition -I would anticipate discharge home with home care after the hospital stay, hopefully tomorrow if stable overnight Primary care physician -Dr Trevor Cheung M.D.
[2019-10-25] MEDS: Metoprolol Succinate 25 MG Tab.ER (PTOM) PO SCH (10:11)
[2019-10-25] MEDS: Famotidine 20 MG Tab (PTOM) PO SCH (16:16)
[2019-10-25] MEDS: LATANOPROST 0.005% EYEBOTH SCH (20:53)
[2019-10-26] MEDS: LORazepam 0.5 MG Tab PO PRN (06:25)
[2019-10-26] MEDS: ALBUTEROL NEB SCH ×3 (07:23→11:06)
[2019-10-26] MEDS: Metoprolol Succinate 25 MG Tab.ER (PTOM) PO SCH (10:13)
--- NOTE | 2019-10-26 10:42 | PCM.DCSUM1 ---
Discharge Summary - Hospital Course Brief History: 79-year-old female with history of multiple sclerosis and oxygen dependent COPD who presented with acute on chronic shortness of breath. She was admitted for management of acute exacerbation of COPD. Diagnosis: Stroke: No - Discharge Data Discharge Date: 10/26/19 Discharge Disposition: Home, W Home Health Agency 06 Condition: Fair - Referral to Home Health Date of Face to Face Encounter: 10/26/19 Reason for Homebound Status: increased weakness and dyspnea from baseline with acute COPD exacerbation Primary Care Physician: PCP None Skilled Need: Nursing to monitor respiratory status after COPD exacerbation and physical therapy to improve strength and endurance - Discharge Diagnosis/Problem(s) (1) COPD exacerbation SNOMED Code(s): 857712725 ICD Code: J44.1 - CHRONIC OBSTRUCTIVE PULMONARY DISEASE W (ACUTE) EXACERBATION Status: Acute Current Visit: Yes (2) Acute and chronic respiratory failure with hypoxia SNOMED Code(s): 85578460, 234074387 ICD Code: J96.21 - ACUTE AND CHRONIC RESPIRATORY FAILURE WITH HYPOXIA Status: Acute Current Visit: Yes (3) Multiple sclerosis SNOMED Code(s): 70276150 ICD Code: G35 - MULTIPLE SCLEROSIS Status: Chronic Current Visit: No (4) Celiac disease SNOMED Code(s): 336063139 ICD Code: K90.0 - CELIAC DISEASE Status: Chronic Current Visit: No - Patient Summary/Data Consults: Consultations 10/23/19 07:00 PT Evaluation and Treatment [CONS] Routine Please Evaluate and Treat. PT Reason for Consult: Strengthening This query below is only for informational purposes and is not editable. Hospital Course: Alicia presented to the emergency room with acute and progressive shortness of breath on top of chronic shortness of breath. Initially she was tachycardic and more hypoxic than usual. No obvious evidence for infection was found but there was obvious evidence for an exacerbation of her COPD. Her procalcitonin level was undetectable. She was admitted to the hospital and started on steroids as well as increased oxygen from her baseline. Over the next couple days we did see clinical improvement with improvement in airflow and then eventually resolution of her wheezing. Her oxygenation did slowly but steadily improved throughout the course of the hospital stay and she is now back to her baseline amount of supplemental oxygen. She has not had any fevers. Symptomatically her shortness of breath has been steadily improving. She is producing some clear sputum at this time. She has tolerated her steroids well. She reports ongoing difficulty with her multiple sclerosis symptoms though they are slowly getting better as well. She has been stable for 48 hours and I believe she is safe for discharge home at this time. Our plan is to continue steroids for 5 more days after hospital discharge to complete a taper. She was interested in home health care to help ease her transition home. She will consider using guaifenesin as needed to help with her mucus. She has follow-up scheduled next week. - Patient Instructions Diet: Usual Diet as Tolerated (Gluten-free) Activity: As Tolerated Showering/Bathing: May Shower Notify Provider of: Fever, Increased Pain Other/Special Instructions: 1. You were in the hospital for management of an acute exacerbation of COPD thought secondary to either a virus or possibly environmental irritants. Your condition has been improving with steroid therapy. I do recommend ongoing therapy with steroids which have been tolerated during the hospital stay. You should take methylprednisolone 4 mg once this evening around suppertime and then once daily starting tomorrow morning for 5 days. You may use the supply that you have available at home. You may consider using guaifenesin (Mucinex) twice daily to help with thinning out the sputum to make the sputum easier to eliminate. I would recommend that you stop taking the antibiotics that were previously prescribed. Continue to use your inhaler and nebulizer as needed. 2. Continue your other home medications as previously prescribed. 3. Follow up with Dr. Spencer as scheduled next week. 4. I have placed a referral to home health care to help ease your transition home. They will be providing nursing and physical therapy services. - Discharge Plan *PRESCRIPTION DRUG MONITORING PROGRAM REVIEWED*: Not Applicable *COPY OF PRESCRIPTION DRUG MONITORING REPORT IN PATIENT MARTHA: Not Applicable Prescriptions/Med Rec: methylPREDNISolone [Medrol] 4 mg PO DAILY #6 tablet Home Medications: Home Meds Albuterol [Proventil HFA] 2 puff INH Q4H PRN 01/15/18 [History] Latanoprost [Xalatan 0.005% Ophth Soln] 1 drop EYEBOTH BEDTIME 01/15/18 [History ] Mineral Oil/Petrolatum,White [Artificial Tears Eye Ointment] 3.5 gm OP BEDTIME 01/15/18 [History] Sod Chlor&Bicarb/Squeez Bottle [Salida Saline Nasal Rinse Kit] 1 dose HYACINTH TID PRN 01/15/18 [History] Metoprolol Succinate [Toprol Xl] 25 mg PO DAILY 07/25/18 [History] Lactobacillus Acidophilus [Acidophilus Lactobacillus] 1 each PO BID #60 capsule 07/26/18 [Rx] Famotidine [Pepcid AC] 10 mg PO DAILY 10/29/18 [History] Acetaminophen 325 mg PO DAILY 10/22/19 [History] EPINEPHrine [Epinephrine] 0.3 mg IM ASDIRECTED 10/22/19 [History] tiZANidine [Zanaflex] 4 mg PO TID 10/22/19 [History] methylPREDNISolone [Medrol] 4 mg PO DAILY #6 tablet 10/26/19 [Rx] Oxygen Therapy Mode: Nasal Cannula (1 L/min) Patient Handouts: Chronic Obstructive Pulmonary Disease Exacerbation, Methylprednisolone tablets Referrals: Trevor Spencer MD [Physician] - 10/31/19 1:00 pm (Please arrive 15 minutes early to register for your appointment.) - Discharge Summary/Plan Comment DC Time >30 min.: Yes (40 - coordinating home health care) - Patient Data Vitals - Most Recent: Last Vital Signs Temp 36.1 C 10/26/19 10:22 Pulse 97 10/26/19 10:22 Resp 16 10/26/19 10:22 BP 112/70 10/26/19 10:22 Pulse Ox 97 10/26/19 10:22 Weight - Most Recent: 53.977 kg I&O - Last 24 hours: Intake & Output 10/25/19 10/26/19 10/26/19 22:59 06:59 14:59 Intake Total 120 Output Total 100 Balance 20 Med Orders - Current: Current Medications Acetaminophen (Tylenol) 650 mg PO Q4H PRN PRN Reason: Pain (Mild 1-3)/fever Last Admin: 10/22/19 21:54 Dose: 650 mg Albuterol (Proventil Neb Soln) 2.5 mg NEB QIDRT [facility] Last Admin: 10/26/19 07:23 Dose: 2.5 mg Albuterol (Ventolin Hfa) 0 gm INH Q4H PRN PRN Reason: Shortness of Breath Famotidine (Pepcid) 10 mg PO Q24H [facility] Last Admin: 10/25/19 16:16 Dose: 10 mg Latanoprost (Xalatan 0.005% Ophth Soln) 0 ml EYEBOTH BEDTIME [facility] Last Admin: 10/25/19 20:53 Dose: 1 drop Lorazepam (Ativan) 0.25 mg PO Q4H PRN PRN Reason: Anxiety Last Admin: 10/26/19 06:25 Dose: 0.25 mg Magnesium Hydroxide (Milk Of Magnesia) 30 ml PO Q12H PRN PRN Reason: Constipation Methylprednisolone (Medrol) 4 mg PO BIDMEALS [facility] Last Admin: 10/26/19 08:18 Dose: 4 mg Metoprolol Succinate (Toprol Xl) 25 mg PO DAILY [facility] Last Admin: 10/26/19 10:13 Dose: 25 mg Ondansetron HCl (Zofran Odt) 4 mg PO Q6H PRN PRN Reason: Nausea able to take PO Ondansetron HCl (Zofran) 4 mg IV Q6H PRN PRN Reason: Nausea/Vomiting Senna/Docusate Sodium (Senna Plus) 1 tab PO BID PRN PRN Reason: Constipation Sodium Chloride (Saline Flush) 10 ml FLUSH ASDIRECTED PRN PRN Reason: Keep Vein Open Last Admin: 10/22/19 07:59 Dose: 10 ml Tizanidine HCl (Zanaflex) 4 mg PO Q8H PRN PRN Reason: Muscle Spasm Last Admin: 10/23/19 02:02 Dose: 1 mg Trolamine Salicylate (Aspercreme 10%) 0 gm TOP ASDIRECTED PRN PRN Reason: MUSCLE SORENESS Last Admin: 10/24/19 06:29 Dose: 1 applic Discontinued Medications Albuterol (Proventil Neb Soln) 2.5 mg NEB ONETIME ONE Stop: 10/22/19 08:49 Last Admin: 10/22/19 09:21 Dose: 2.5 mg Aspirin (Aspirin) 324 mg PO ONETIME ONE Stop: 10/22/19 05:54 Last Admin: 10/22/19 06:03 Dose: Not Given Carvedilol (Coreg) 25 mg PO ONETIME ONE Stop: 10/22/19 05:54 Last Admin: 10/22/19 06:02 Dose: 25 mg Hydromorphone HCl (Dilaudid) 0.25 mg IVPUSH ONETIME ONE Stop: 10/22/19 06:41 Last Admin: 10/22/19 06:50 Dose: 0.25 mg Sodium Chloride (Normal Saline) 100 mls @ 4 mls/sec IV ASDIRECTED [facility] Last Admin: 10/22/19 07:20 Dose: 4 mls/sec Iopamidol (Isovue-370 (76%)) 100 ml IV . DIRECTED [facility] Last Admin: 10/22/19 07:20 Dose: 100 ml Lorazepam (Ativan) 0.5 mg PO Q4H PRN PRN Reason: Anxiety Last Admin: 10/23/19 23:03 Dose: 0.5 mg Methylprednisolone Sodium Succinate (Solu-Medrol) 125 mg IVPUSH ONETIME ONE Stop: 10/22/19 06:10 Last Admin: 10/22/19 06:17 Dose: 125 mg Sodium Chloride (Saline Flush) 10 ml FLUSH ONETIME [facility] Last Admin: 10/22/19 07:20 Dose: 10 ml - Exam Quality Assessment: Reports: Supplemental Oxygen General: Reports: Alert, Oriented, Cooperative, No Acute Distress Lungs: Reports: Clear to Auscultation, Normal Respiratory Effort Cardiovascular: Reports: Regular Rate, Regular Rhythm GI/Abdominal Exam: Soft, No Distention Extremities: No Pedal Edema Psy/Mental Status: Reports: Alert, Normal Affect
== END 2019-10-26 12:51 | disposition home health service (06) | DRG 189 ==
LOC: JP.ED 05:41 → JP.MS 12:58
PROVIDERS: ADMIT Internal Medicine; ATTEND Internal Medicine
DX: J96.21 Acute and chronic respiratory failure with hypoxia (principal); R91.1 Solitary pulmonary nodule; J44.1 Chronic obstructive pulmonary disease with (acute) exacerbation; G35 Multiple sclerosis; K21.9 Gastro-esophageal reflux disease without esophagitis; H54.7 Unspecified visual loss; I34.1 Nonrheumatic mitral (valve) prolapse; Z66 Do not resuscitate; K90.0 Celiac disease; F41.9 Anxiety disorder, unspecified; H40.9 Unspecified glaucoma; Z91.02 Food additives allergy status; Z79.899 Other long term (current) drug therapy; Z99.81 Dependence on supplemental oxygen; Z88.6 Allergy status to analgesic agent; Z91.040 Latex allergy status; Z88.5 Allergy status to narcotic agent; Z88.8 Allergy status to other drugs, medicaments and biological substances; Z88.0 Allergy status to penicillin; Z90.49 Acquired absence of other specified parts of digestive tract; Z90.710 Acquired absence of both cervix and uterus; Z87.891 Personal history of nicotine dependence
CPT/HCPCS: 36415; 71045; 71275; 80048; 81001; 84145; 84443; 84484; 85027; 85379; 94640; 96374; 96375; 99285; A9270; J1170; J2930; J7030; Q9967; 93306; 94667; 94668; 97110-GP; 97140-GP; 97163-GP; 97530-GP; 97535-GP; J7050

== ENCOUNTER 2022-11-26 16:28 | Observation (INO) | payer MEDICARE, OTHER ==
[2022-11-26] MEDS ORDERED: LORazepam 2 MG/ML SDV IVPUSH ONE (16:58)
[2022-11-26] MEDS ORDERED: Albuterol/Ipratropium 3.0-0.5 MG/3 ML Neb Soln NEB ONE (16:58)
[2022-11-26] MEDS ORDERED: Lactated Ringers 1,000 ML IV SCH ×2 (17:00→18:30)
[2022-11-26 17:38] LABS: ESTIMATED GFR 87 mL/min (>60)
[2022-11-26] MEDS ORDERED: Ondansetron 4 MG/2 ML SDV IV PRN (19:56)
[2022-11-26] MEDS ORDERED: Ondansetron 4 MG Tab.DIS PO PRN (19:56)
[2022-11-26] MEDS ORDERED: Magnesium Hydroxide 400 MG/5 ML Susp 30 ML Cup PO PRN (19:56)
[2022-11-26] MEDS ORDERED: Albuterol 0.083% 2.5 MG/3 ML Neb Soln NEB PRN (20:28)
[2022-11-26] MEDS ORDERED: Metoprolol Tartrate 25 MG Tab PO ONE (20:31)
[2022-11-26] MEDS: Lactated Ringers 1,000 ML IV SCH (20:41)
[2022-11-26] MEDS: Melatonin 3 MG Tab PO PRN (22:24)
[2022-11-26] MEDS: ClonazePAM 0.5 MG Tab PO PRN (22:24)
[2022-11-26] MEDS: Latanoprost 0.005% Ophth Soln 2.5 ML Bottle EYEBOTH SCH (22:28)
[2022-11-26] MEDS: Polyethylene Glycol 3350 Powder 17 GM Packet PO SCH (22:28)
[2022-11-27] MEDS: Lactated Ringers 1,000 ML IV SCH (08:19)
[2022-11-27] MEDS: Metoprolol Succinate 25 MG Tab.ER PO SCH (08:21)
[2022-11-27] MEDS: Sertraline 25 MG Tab PO SCH (09:37)
[2022-11-27] MEDS: ClonazePAM 0.5 MG Tab PO PRN ×2 (09:38→15:46)
[2022-11-27] MEDS: Enoxaparin 40 MG/0.4 ML Syringe SUBCUT SCH (09:57)
[2022-11-27] MEDS ORDERED: Magnesium Sulfate/Water 2 GM in Premix Bag 1 BAG IV ONE (17:00)
[2022-11-27] MEDS: Latanoprost 0.005% Ophth Soln 2.5 ML Bottle EYEBOTH SCH (21:53)
[2022-11-27] MEDS: Polyethylene Glycol 3350 Powder 17 GM Packet PO SCH (21:53)
[2022-11-28] MEDS: ClonazePAM 0.5 MG Tab PO PRN ×2 (01:01→10:29)
[2022-11-28] MEDS: Melatonin 3 MG Tab PO PRN ×2 (01:01→20:50)
[2022-11-28] MEDS: Tamsulosin 0.4 MG Cap.ER PO SCH ×2 (01:38→20:51)
[2022-11-28] MEDS: Enoxaparin 40 MG/0.4 ML Syringe SUBCUT SCH (09:21)
[2022-11-28] MEDS: Metoprolol Succinate 25 MG Tab.ER PO SCH (09:22)
[2022-11-28] MEDS: Sertraline 25 MG Tab PO SCH (09:22)
[2022-11-28] MEDS: traMADol 50 MG Tab PO PRN ×2 (10:29→20:50)
[2022-11-28] MEDS: Polyethylene Glycol 3350 Powder 17 GM Packet PO SCH (20:45)
[2022-11-28] MEDS: Latanoprost 0.005% Ophth Soln 2.5 ML Bottle EYEBOTH SCH (20:52)
[2022-11-28] MEDS ORDERED: Tamsulosin 0.4 MG Cap.ER PO SCH (23:23)
[2022-11-29] MEDS: LORazepam 0.5 MG Tab PO PRN ×2 (06:31→18:22)
[2022-11-29] MEDS: Metoprolol Succinate 25 MG Tab.ER PO SCH (08:29)
[2022-11-29] MEDS: Sertraline 25 MG Tab PO SCH (08:29)
[2022-11-29] MEDS: Latanoprost 0.005% Ophth Soln 2.5 ML Bottle EYEBOTH SCH (20:06)
[2022-11-29] MEDS: Polyethylene Glycol 3350 Powder 17 GM Packet PO SCH (20:07)
[2022-11-29] MEDS: Tamsulosin 0.4 MG Cap.ER PO SCH (20:07)
[2022-11-29] MEDS: traMADol 50 MG Tab PO PRN (20:14)
[2022-11-30] MEDS: Melatonin 3 MG Tab PO PRN (00:33)
[2022-11-30] MEDS: LORazepam 0.5 MG Tab PO PRN ×3 (00:33→16:24)
[2022-11-30] MEDS: Sertraline 25 MG Tab PO SCH (08:47)
[2022-11-30] MEDS: Metoprolol Succinate 25 MG Tab.ER PO SCH (08:48)
[2022-11-30] MEDS: traMADol 50 MG Tab PO PRN (12:08)
[2022-11-30] MEDS: Polyethylene Glycol 3350 Powder 17 GM Packet PO SCH (20:37)
[2022-11-30] MEDS: Tamsulosin 0.4 MG Cap.ER PO SCH (20:37)
[2022-11-30] MEDS: Latanoprost 0.005% Ophth Soln 2.5 ML Bottle EYEBOTH SCH (20:37)
[2022-12-01] MEDS: traMADol 50 MG Tab PO PRN ×3 (04:53→19:50)
[2022-12-01] MEDS: LORazepam 0.5 MG Tab PO PRN ×2 (04:53→18:36)
[2022-12-01] MEDS: Sertraline 25 MG Tab PO SCH (09:20)
[2022-12-01] MEDS: Metoprolol Succinate 25 MG Tab.ER PO SCH (09:22)
[2022-12-01] MEDS: Morphine 10 MG/0.5 ML Oral Syringe PO PRN ×2 (13:12→22:21)
[2022-12-01] MEDS: Polyethylene Glycol 3350 Powder 17 GM Packet PO SCH (20:30)
[2022-12-01] MEDS: Tamsulosin 0.4 MG Cap.ER PO SCH (20:30)
[2022-12-01] MEDS: Latanoprost 0.005% Ophth Soln 2.5 ML Bottle EYEBOTH SCH (20:30)
[2022-12-02] MEDS: traMADol 50 MG Tab PO PRN ×2 (01:58→10:56)
[2022-12-02] MEDS: LORazepam 0.5 MG Tab PO PRN (07:32)
[2022-12-02] MEDS: Sertraline 25 MG Tab PO SCH (08:58)
[2022-12-02] MEDS: Metoprolol Succinate 25 MG Tab.ER PO SCH (08:58)
== END 2022-12-02 11:50 ==
LOC: JP.ED 16:28 → JP.MS 18:57
PROVIDERS: ADMIT Hospitalist; ATTEND Internal Medicine
DX: G35 Multiple sclerosis (principal); N31.9 Neuromuscular dysfunction of bladder, unspecified; J44.9 Chronic obstructive pulmonary disease, unspecified; K90.0 Celiac disease; E86.0 Dehydration; J45.909 Unspecified asthma, uncomplicated; F41.9 Anxiety disorder, unspecified; F32.A Depression, unspecified; K21.9 Gastro-esophageal reflux disease without esophagitis; Z79.899 Other long term (current) drug therapy; Z88.6 Allergy status to analgesic agent; Z91.018 Allergy to other foods; Z91.040 Latex allergy status; Z88.5 Allergy status to narcotic agent; Z88.0 Allergy status to penicillin; Z98.890 Other specified postprocedural states; Z90.49 Acquired absence of other specified parts of digestive tract; Z90.710 Acquired absence of both cervix and uterus; Z87.891 Personal history of nicotine dependence; Z20.822 Contact with and (suspected) exposure to COVID-19
CPT/HCPCS: 36415; 51701; 51702; 51798; 71045; 80048; 80053; 81001; 83605; 83735; 84145; 85025; 85027; 86140; 87040; 94640; 96361; 96365; 96366; 96372; 96374; 96375; 97161-GP; 99222; 99232; 99239; 99285; 99285-25; A9270-GY; G0378; J1650; J2060; J3475; J7120; J7620; U0002